=== PATIENT | female | born 1940 | race American Indian/Alaskan Native ===

== ENCOUNTER 2017-04-21 23:23 | Inpatient (IN) | payer MEDICARE, OTHER ==
[2017-04-21 23:23] VITALS: BMI 29.4
--- NOTE | 2017-04-21 23:39 | C.PDOC ---
History Of Present Illness pt presents with increased shortness of breath, yellow productive cough. No f/c/ n/v or chest pain. Speaking in complete sentences. Time Seen by Provider: 04/21/17 23:38 History Per: Patient History/Exam Limitations: no limitations Onset/Duration Of Symptoms: Days (6) Current Symptoms Are (Timing): Still Present Initiating Event: Upper Respiratory Illness Quality: Dull Exacerbating Factor(s): Exertion, Coughing Current Respiratory Medications: See Home Med List Severity: Moderate Pain Scale Rating Of: 4 Associated Symptoms: Productive Cough. denies: Fever, Chills Reports Recently: Treated By A Physician Recent travel outside of the [place]: No Additional History Per: Family Past Medical History Reviewed: Historical Data, Nursing Documentation, Vital Signs Vital Signs: Last Vital Signs Temp 97.6 F 04/21/17 23:43 Pulse 81 04/21/17 23:45 Resp 20 04/22/17 00:09 BP 144/85 04/21/17 23:45 Pulse Ox 100 04/22/17 00:12 - Medical History PMH: Arthritis, CHF, Depression, Diabetes, Gall Bladder Disease (gallstones), Hyperlipidemia, Pneumonia Denies: Anemia, Anxiety, Asthma, Bronchitis, Cardia Arrhythmia, COPD, Dementia - [facility] Procedures ANGIOPLASTY OF OTHER NON-CORONARY VESSEL(S) (08/20/14) ATHERECTOMY OF OTHER NON-CORONARY VESSEL(S) (08/20/14) CENTRAL VENOUS CATHETER PLACEMENT WITH GUIDANCE (08/20/14) CLOSURE SKIN & SUBCUTANEOUS NEC (05/15/14) CONTRAST AORTOGRAM (08/20/14) CONTRAST ARTERIOGRAM-LEG (08/20/14) CORONAR ARTERIOGR-2 CATH (01/26/14) DX ULTRASOUND-THORAX NEC (09/07/14) EXCIS DEBRIDE OF WOUND, INFECT, OR BURN (04/28/14) EXCISION OF DUODENUM, ENDO, DIAGN (09/22/15) EXCISION OF SIGMOID COLON, ENDO (09/22/15) EXCISION OF STOMACH, ENDO, DIAGN (09/22/15) INSEJ OF DRUG-ELUTING STENT(S) OF OTH PERIPHERAL VESSEL(S) (08/20/14) INSERTION OF ONE VASCULAR STENT (08/20/14) INTRAVASCULAR IMAGING OF PERIPHERAL VESSELS (08/20/14) LEFT HEART CARDIAC CATH (01/26/14) LT HEART ANGIOCARDIOGRAM (01/26/14) NEBULIZER THERAPY (11/05/14) NON-INVASIVE MECHANICAL VENTILATION (11/05/14) NONEXCIS DEBRID OF WOUND, INFECT, OR BURN (08/20/14) OTHER LOCAL DESTRUC SKIN (05/15/14) OTHER SKIN & SUBQ I D (04/28/14) PROCEDURE ON SINGLE VESSEL (08/20/14) PULSATION BALLOON IMPLAN (01/26/14) THORACENTESIS (10/20/14) TOE AMPUTATION (04/28/14) VACCINATION NEC (08/20/14) Family History: States: No Known Family Hx - Social History Hx Tobacco Use: No Hx Alcohol Use: No Hx Substance Use: No - Immunization History Hx Tetanus Toxoid Vaccination: No Hx Influenza Vaccination: No Hx Pneumococcal Vaccination: No Review Of Systems Constitutional: Negative for: Fever, Chills Eyes: Negative for: Vision Change ENT: Negative for: Throat Pain Cardiovascular: Negative for: Chest Pain, Palpitations Respiratory: Positive for: Cough, Shortness of Breath. Negative for: Hemoptysis , SOB with Excertion, Wheezing Gastrointestinal: Negative for: Nausea, Vomiting Genitourinary: Negative for: Dysuria Musculoskeletal: Negative for: Back Pain Skin: Negative for: Rash, Lesions, Jaundice, Bruising Neurological: Negative for: Weakness Psych: Negative for: Anxiety Physical Exam - Physical Exam Appears: Non-toxic, No Acute Distress Skin: Warm, Dry Head: Normacephalic Oral Mucosa: Moist Neck: Trachea Midline, Supple, Other (mild jvd) Chest: Symmetrical Cardiovascular: Rhythm Regular Respiratory: No Rales, Rhonchi, No Wheezing Gastrointestinal/Abdominal: Soft, No Tenderness, No Distention Back: Normal Inspection Extremity: Normal ROM Extremity: Bilateral: Atraumatic, No Pedal Edema Neurological/Psych: Oriented x3, Normal Speech, Normal Cognition Gait: With Assistance ED Course And Treatment - Laboratory Results Result Diagrams: 04/22/17 00:07 04/22/17 00:51 ECG: Interpreted By Me, Viewed By Me ECG Rhythm: Sinus Rhythm (82), R BBB, Nonspecific Changes (old inf and ant infarct) O2 Sat by Pulse Oximetry: 100 Pulse Ox Interpretation: Normal - Radiology CXR: Interpreted by Me, Viewed By Me CXR Interpretation: Yes: Cardiomegaly, Other (chf, r pleural effusion). No: Fracture Disposition Discussed With Dr.: Wade Grider Comment: accepted the pt on his service and took over the care at 1:21 AM Doctor Will See Patient In The: Hospital Counseled Patient/Family Regarding: Studies Performed, Diagnosis - Disposition Disposition: HOSPITALIZED Disposition Time: 23:39 Condition: FAIR - POA Present On Arrival: Poor Glycemic Control - Clinical Impression Clinical Impression: Dyspnea, CHF (congestive heart failure), Renal insufficiency Decision To Admit - Pt Status Changed To: Hospital Disposition Of: Inpatient - Admit Certification Admit to Inpatient:: After my assessment, the patient will require hospitalization for at least two midnights. This is because of the severity of symptoms shown, intensity of services needed, and/or the medical risk in this patient being treated as an outpatient. - InPatient: Physician Admission Certification: I certify that this patient requires 2 or more midnights of care for the following reason:: After my assessment, the patient will require hospitalization for at least two midnights. This is because of the severity of symptoms shown, intensity of services needed, and/or the medical risk in this patient being treated as an outpatient. - . Bed Request Type: Telemetry Admitting Physician: Wade Grider Patient Diagnosis: Dyspnea, CHF (congestive heart failure), Renal insufficiency
[2017-04-22 00:11] LABS: BASO % 0.6 % (0.0-2.0); EOS # 0.1 K/uL (0.0-0.7); EOS % 1.5 % (0.0-4.0); HEMATOCRIT 33.3 % (34.0-47.0); LYMPH # 1.6 K/uL (1.0-4.3); LYMPH % 20.9 % (20.0-40.0); MEAN CELL VOLUME 75.5 fL (81.0-99.0); MEAN CORPUSCULAR HEMOGLOBIN 23.9 pg (27.0-31.0); MEAN CORPUSCULAR HGB CONC 31.7 g/dL (33.0-37.0); MEAN PLATELET VOLUME 10.2 fL (7.2-11.7); MONO # 0.7 K/uL (0.0-0.8); MONO % 9.6 % (0.0-10.0); RED CELL DISTRIBUTION WIDTH 13.8 % (11.5-14.5); WHITE BLOOD COUNT 7.8 K/uL (4.8-10.8)
[2017-04-22 00:14] LABS: VENOUS BLOOD GAS BASE EXCESS -1.8 mmol/L (0.0-2.0); VENOUS BLOOD GAS PCO2 48 mmHg (40-60); VENOUS BLOOD PH 7.32 (7.32-7.43)
[2017-04-22 00:21] LABS: INR 1.2
[2017-04-22 00:57] LABS: CHLORIDE 101 mmol/L (98-107); POTASSIUM 4.5 mmol/L (3.6-5.2); SODIUM 137 mmol/L (132-148)
[2017-04-22 00:59] LABS: BILIRUBIN,TOTAL 0.8 mg/dL (0.2-1.3); CARBON DIOXIDE 21 mmol/L (22-30); GFR AFRICAN-AMERICAN 33
[2017-04-22 01:00] LABS: ALB/GLOB RATIO 1.1 (1.0-2.1); ALKALINE PHOSPHATASE 89 U/L (38-126); ALT/SGPT 36 U/L (9-52); AST/SGOT 40 U/L (14-36); BLOOD UREA NITROGEN 60 mg/dL (7-17); CALCIUM 8.2 mg/dl (8.6-10.4); GLUCOSE,RANDOM 177 mg/dL (65-105); TOTAL PROTEIN 7.6 g/dL (6.3-8.3)
[2017-04-22] MEDS ORDERED: Magnesium Hydroxide Susp 30 ml UD PO PRN (06:51)
[2017-04-22 08:13] LABS: BASO # 0.1 K/uL (0.0-0.2); BASO % 0.9 % (0.0-2.0); EOS # 0.1 K/uL (0.0-0.7); EOS % 0.9 % (0.0-4.0); HEMATOCRIT 35.3 % (34.0-47.0); LYMPH # 1.5 K/uL (1.0-4.3); LYMPH % 21.3 % (20.0-40.0); MEAN CORPUSCULAR HEMOGLOBIN 23.8 pg (27.0-31.0); MEAN CORPUSCULAR HGB CONC 31.7 g/dL (33.0-37.0); MONO # 0.6 K/uL (0.0-0.8); MONO % 9.2 % (0.0-10.0)
[2017-04-22 08:22] LABS: POTASSIUM 4.4 mmol/L (3.6-5.2)
[2017-04-22 08:25] LABS: CALCIUM 8.6 mg/dl (8.6-10.4); TOTAL PROTEIN 7.8 g/dL (6.3-8.3)
[2017-04-22] MEDS: (Novolin R) Insulin Human Regular 100 units/ml vial SC SCH ×4 (08:28→22:59)
[2017-04-22] MEDS: Digoxin 125 mcg (0.125 mg) Tab PO SCH (10:43)
[2017-04-22] MEDS: metOLazone 5 MG TAB PO SCH (10:43)
[2017-04-22] MEDS: Multiple Vitamins Tab PO SCH (10:44)
[2017-04-22] MEDS: GlipiZIDE 10 mg SR Tab PO SCH (10:44)
--- NOTE | 2017-04-22 11:26 | HP ---
I saw her in her room at [facility], telemetry, 668. She comes into the Emergency Room in the m iddle of the night with shortness of breath, productive cough, chest pain. I got a call at 1:30 from the ER doctor that she is here, not feeling well. She is a 77-year-old -[place] female with shortness of breath and coughing with exertion. It would not go away. PAST MEDICAL HISTORY: Arthritis, CHF, depression, diabetes, gallbladder disease, hyperlipidemia, a p neumonia history in the past. No headache or dizziness. No changes in vision or hearing. No sore throat. A little chest discomfo rt. There is shortness of breath. There is cough. No abdominal pain. No nausea, vomiting, constip ation, diarrhea. No leg pain. No rashes. Not weak. No numbness or tingling. No anxiety or depres benito. PHYSICAL EXAMINATION: VITAL SIGNS: She has a 98.3 temp, 145/85 blood pressure, 18 respiratory rate and 100% O2 sat on room air. HEENT: Head is atraumatic, normocephalic. Extraocular muscles are intact. Throat is moist. NECK: Supple. HEART: Regular rate and rhythm. LUNGS: Decreased breath sounds. No rales, rhonchi or wheezing. She is comfortable at rest after La six 40 IV. ABDOMEN: Morbidly obese, nontender, positive bowel sounds, no guarding, no rebound, no CVA tendernes s. EXTREMITIES: Had bilateral +1/4 pitting. Now, there is no edema this morning after Lasix IV. NEUROLOGIC: She is alert and oriented x 3. Normal speech. She is comfortable sitting in bed at res t. LYMPHATIC: Thyroid midline. No palpable lymphadenopathy. SKIN: Intact. She had 7.8 white count, 10.6 hemoglobin, 32.3 hematocrit with 195 platelets. INR 1.2. She is suppo sed to be on Coumadin. PH 7.32. Sodium 137, potassium 4.5, BUN 60, creatinine 1.8, GFR is 27, sugar is 177. I will call in renal and also give her insulin coverage. Total bili is 0.8, calcium is 8.2 , AST is 40, ALT is 36, alk phos is 89. Troponin I is 0.0170, low. BNP was gibson high at 18,300. I w ill increase her Lasix to b.i.d. IV. Albumin is 3.9. Digoxin level is less than 0.04. She will have a consult with cardiology. Chest x-ray is pending. She will have an INR checked, put back on her medications, aspirin, warfarin, digoxin, glipizide, I will increase the Lasix, metolazone , magnesium and multivitamins. We will get physical therapy involved, get oxygen and renal for her r enal insufficiency. She is here for congestive heart failure, chest pain, renal insufficiency. Get physical therapy, she seems weak and we will keep a very close eye on her. Wade Grider DO cc: [id number] TT: 04/22/2017 11:25:43 en
[2017-04-22 11:41] LABS: INR 1.2
--- NOTE | 2017-04-22 15:43 | RAD ---
PROCEDURE: CHEST RADIOGRAPH, 1 VIEW HISTORY: SOB COMPARISON: None available. FINDINGS: LUNGS: Mild central pulmonary vascular congestive changes with more dense opacification in the lower lung petty right greater than left. Findings may represent alveolar-type infiltrates related pulmonary edema however pneumonia not excluded. Probable small right-sided effusion. PLEURA: No apparent pneumothorax CARDIOVASCULAR: Cardiomegaly OSSEOUS STRUCTURES: Mild degenerative changes both shoulder girdles. . VISUALIZED UPPER ABDOMEN: Normal. OTHER FINDINGS: None. IMPRESSION: Mild central pulmonary vascular congestive changes with more dense opacification in the lower lung petty right greater than left. Findings may represent alveolar-type infiltrates related pulmonary edema however pneumonia not excluded. Probable small right-sided effusion. This report was placed in PA review folder for followup. Case also discussed with emergency room TINA Landers at approximately 3:41 p.m. with written fat written down and read back verification.
--- NOTE | 2017-04-22 18:52 | CON ---
DATE: 04/22/2017 ATTENDING PHYSICIAN: Dr. Wade Grider. HISTORY OF PRESENT ILLNESS: The patient is a 77-year-old black female who is being seen for renal fa ilure. The patient has a long history of diabetes and hypertension who has been told over the last s everal years that her kidney function is not normal. She developed shortness of breath and cough pro ductive of dark sputum, came to the Emergency Room and was admitted. LABORATORY DATA: Her white count was 7800 earlier today, her hemoglobin 10.6, hematocrit 33.3, plate let count was 195,000. Sodium 137, potassium 4.5, chloride 101, CO2 of 21, BUN 60, creatinine 1.8. Glucose was 177, calcium 8.2, total bilirubin 0.8, AST of 40, ALT of 36, alkaline phosphatase of 89, BNP of 18,300. Total protein 7.6, albumin 3.9. Digoxin less than 0.4. Repeat BUN was 57 with a cre atinine of 1.9. Troponin was 0.0170. PAST MEDICAL HISTORY: Positive for congestive heart failure, depression, gallstones and pneumonia. She has had cataracts. She has had a cataract removed. Her eyesight is still poor. Does not rememb er being told of diabetic retinopathy. She believes she might have had a heart attack in the past. She denies stroke. She has been admitted to [facility] in the past. ALLERGIES: She has no allergies. MEDICATIONS: Include Ecotrin, Lanoxin, Lasix, Glucotrol, insulin, Zaroxolyn multivitamin and Coumadi n. FAMILY HISTORY: Positive for diabetes and hypertension. SOCIAL HISTORY: Negative for alcohol or drug abuse. She does not take anti-inflammatory agents and she does not smoke. REVIEW OF SYSTEMS: She denied chills or fever. She denied chest pain when not coughing. There was no abdominal pain, nausea, vomiting or diarrhea and she had no urinary symptoms. PHYSICAL EXAMINATION: GENERAL: She was awake and alert, in no acute distress. VITAL SIGNS: Her blood pressure was 133/76. Her temperature was 98.4 with a pulse of 77. NECK: She had jugular venous distention at 30 degrees. LUNGS: Clear with prolonged inspiration and expiration and coarse sounds. HEART: Rhythm was regular. ABDOMEN: Soft and nontender. There was no CVA tenderness or presacral edema. EXTREMITIES: There was no leg edema and she moved all her extremities. IMPRESSION: 1. Congestive heart failure. 2. Cardiomyopathy. 3. Diabetes, probable diabetic nephropathy, chronic kidney disease III. 4. Hypertension. RECOMMENDATIONS: Would recommend a urine for protein and creatinine, hemoglobin A1c, a renal ultraso und and serial chemistries. Await further cardiology evaluation. Thank you for your kind referral. Will continue to follow with you. Sincerely, Fly Cano MD cc: [id number] TT: 04/22/2017 18:50:59 Confirmation # [id number] Dictation # [id number] dn
--- NOTE | 2017-04-22 19:23 | US ---
PROCEDURE: Renal ultrasound dated 04/22/2017. HISTORY: Renal failure. COMPARISON: None available. TECHNIQUE: Sonogram of the kidneys. FINDINGS: RIGHT KIDNEY: Right kidney measures approximately 9.9 x 5.3 x 4.5 cm. Slightly echogenic renal parenchyma suggesting medical renal disease. Relatively normal size and contour. . No stone, solid mass lesion or hydronephrosis visualized. LEFT KIDNEY: Left kidney measures approximately 10.9 x 5.2 x 4.7 cm. Slightly echogenic renal parenchyma suggesting underlying medical renal disease. . Relatively normal size and contour. No stone, solid mass lesion or hydronephrosis visualized. OTHER FINDINGS: The visualized urinary bladder demonstrates no at shadowing calculi so far as can be seen. IMPRESSION: Findings suggest underlying mild medical renal disease. No evidence of nephrolithiasis or hydronephrosis.
[2017-04-23 07:29] LABS: INR 1.2; MEAN CELL VOLUME 76.2 fL (81.0-99.0); MEAN CORPUSCULAR HEMOGLOBIN 23.9 pg (27.0-31.0); MEAN CORPUSCULAR HGB CONC 31.3 g/dL (33.0-37.0); MEAN PLATELET VOLUME 10.4 fL (7.2-11.7); RED CELL DISTRIBUTION WIDTH 14.2 % (11.5-14.5)
[2017-04-23] MEDS: (Novolin R) Insulin Human Regular 100 units/ml vial SC SCH ×4 (07:38→22:23)
[2017-04-23 08:07] LABS: BILIRUBIN,TOTAL 1.2 mg/dL (0.2-1.3)
[2017-04-23 08:08] LABS: CALCIUM 9.1 mg/dl (8.6-10.4); TOTAL PROTEIN 8.5 g/dL (6.3-8.3)
[2017-04-23 08:19] LABS: CREATININE, RANDOM URINE 29.5 mg/dL
[2017-04-23] MEDS: GlipiZIDE 10 mg SR Tab PO SCH (10:04)
[2017-04-23] MEDS: Digoxin 125 mcg (0.125 mg) Tab PO SCH (10:04)
[2017-04-23] MEDS: Multiple Vitamins Tab PO SCH (10:04)
[2017-04-23] MEDS: metOLazone 5 MG TAB PO SCH (10:05)
--- NOTE | 2017-04-23 10:10 | CP.PCM.CON ---
History of Present Illness - History of Present Illness History of Present Illness: The patient is a 77 year old female with DM, CAD (three coronary stents at one hospital visit in [facility] 3 years ago), with progressive shortness of breath. CXR shows mild congestion. No chest pressure.She is followed by a research asst in [place], whom she cannot name. A echo performed here in early 2015 revealed, moderately reduced LV EF wit akinesis of the apical septal, apical and inferior collins c/w OK in the LAD distribution. pt had mild MR and mild AI, but moderate pulmonary HTN.Pt has high BUN and cr, seen by Dr Cano. matteo not on scott inhibitor or arb at home. Pt is also on coumadin, and she is not sure if she has a history of afib in the past. Review of Systems - Review of Systems All systems: reviewed and no additional remarkable complaints except (as above.) Past Patient History - Infectious Disease Hx of Infectious Diseases: None - Tetanus Immunizations Tetanus Immunization: Unknown - Past Social History Smoking Status: Never Smoked - CARDIAC Hx Congestive Heart Failure: Yes - PULMONARY Hx Asthma: No Hx Bronchitis: No Hx Chronic Obstructive Pulmonary Disease (COPD): No Hx Pneumonia: Yes - NEUROLOGICAL Hx Dementia: No - HEENT Hx HEENT Problems: No Hx Blind: No Hx Cataracts: No Hx Deafness: No Hx Difficulty Chewing: No Hx Epistaxis: No Hx Glaucoma: No Hx Macular Degeneration: No - RENAL Hx Chronic Kidney Disease: No Hx Kidney Stones: No - ENDOCRINE/METABOLIC Hx Hyperthyroidism: No Hx Hypothyroidism: No - HEMATOLOGICAL/ONCOLOGICAL Hx Anemia: No - INTEGUMENTARY Hx Dermatological Problems: No - MUSCULOSKELETAL/RHEUMATOLOGICAL Hx Arthritis: Yes - GASTROINTESTINAL Hx Gall Bladder Disease: Yes (gallstones) - GENITOURINARY/GYNECOLOGICAL Hx Sexually Transmitted Disorders: No - PSYCHIATRIC Hx Anxiety: No Hx Depression: Yes Hx Substance Use: No - SURGICAL HISTORY Hx Appendectomy: No Hx Cholecystectomy: No Hx Coronary Stent: No - ANESTHESIA Hx Anesthesia: Yes Hx Anesthesia Reactions: No Hx Malignant Hyperthermia: No Has any member of the family had a problem w/ anesthesia?: No Meds Allergies/Adverse Reactions: Allergies Allergy/AdvReac Type Severity Reaction Status Date / Time No Known Allergies Allergy Verified 11/24/15 15:06 - Medications Medications: Current Medications Aspirin (Ecotrin) 81 mg PO DAILY [facility] Last Admin: 04/22/17 10:43 Dose: 81 mg Digoxin (Lanoxin) 0.125 mg PO QAM [facility] Last Admin: 04/22/17 10:43 Dose: 0.125 mg Furosemide (Lasix) 40 mg IVP DAILY [facility] Glipizide (Glucotrol Xl) 10 mg PO DAILY [facility] Last Admin: 04/22/17 10:44 Dose: 10 mg Insulin Human Regular (Novolin R) 0 unit SC ACHS [facility] PRN Reason: Protocol Last Admin: 04/23/17 07:38 Dose: Not Given Magnesium Hydroxide (Milk Of Magnesia) 30 ml PO DAILY PRN PRN Reason: Constipation Metolazone (Zaroxolyn) 5 mg PO DAILY [facility] Last Admin: 04/22/17 10:43 Dose: 5 mg Multivitamins (Hexavitamin) 1 tab PO DAILY [facility] Last Admin: 04/22/17 10:44 Dose: 1 tab Physical Exam - Constitutional Appears: Well - Head Exam Head Exam: ATRAUMATIC - Eye Exam Eye Exam: EOMI Pupil Exam: NORMAL ACCOMODATION - ENT Exam ENT Exam: Mucous Membranes Moist - Neck Exam Neck exam: Positive for: Normal Inspection - Respiratory Exam Respiratory Exam: Clear to Auscultation Bilateral - Cardiovascular Exam Cardiovascular Exam: REGULAR RHYTHM - GI/Abdominal Exam GI & Abdominal Exam: Normal Bowel Sounds - Exam External exam: Swelling (mild, chronic) Results - Vital Signs Recent Vital Signs: Last Vital Signs Temp 97.8 F 04/23/17 08:26 Pulse 73 04/23/17 08:50 Resp 20 04/23/17 08:26 BP 148/90 04/23/17 08:26 Pulse Ox 100 04/23/17 08:26 - Labs Result Diagrams: 04/23/17 07:15 04/23/17 07:15 Labs: Laboratory Results - last 24 hr 04/22/17 04/22/17 04/22/17 11:27 11:27 12:22 WBC RBC Hgb Hct MCV MCH MCHC RDW Plt Count MPV PT 13.8 H INR 1.2 Sodium Potassium Chloride Carbon Dioxide Anion Gap BUN Creatinine Est GFR ( Amer) Est GFR (Non-Af Amer) POC Glucose (mg/dL) 178 H Random Glucose Hemoglobin A1c Calcium Total Bilirubin AST ALT Alkaline Phosphatase Troponin I 0.1070 Total Protein Albumin Globulin Albumin/Globulin Ratio Ur Random Creatinine U Random Total Protein 04/22/17 04/22/17 04/22/17 17:30 17:35 22:23 WBC RBC Hgb Hct MCV MCH MCHC RDW Plt Count MPV PT INR Sodium Potassium Chloride Carbon Dioxide Anion Gap BUN Creatinine Est GFR ( Amer) Est GFR (Non-Af Amer) POC Glucose (mg/dL) 222 H 119 H Random Glucose Hemoglobin A1c 8.6 H Calcium Total Bilirubin AST ALT Alkaline Phosphatase Troponin I Total Protein Albumin Globulin Albumin/Globulin Ratio Ur Random Creatinine U Random Total Protein 04/23/17 04/23/17 04/23/17 06:49 07:15 07:15 WBC 9.0 RBC 5.12 Hgb 12.2 Hct 39.0 MCV 76.2 L MCH 23.9 L MCHC 31.3 L RDW 14.2 Plt Count 222 MPV 10.4 PT INR Sodium 138 Potassium 4.0 Chloride 99 Carbon Dioxide 24 Anion Gap 19 BUN 57 H Creatinine 1.8 H Est GFR ( Amer) 33 Est GFR (Non-Af Amer) 27 POC Glucose (mg/dL) 93 Random Glucose 89 Hemoglobin A1c Calcium 9.1 Total Bilirubin 1.2 AST 39 H ALT 32 Alkaline Phosphatase 108 Troponin I Total Protein 8.5 H Albumin 4.1 Globulin 4.3 H Albumin/Globulin Ratio 1.0 Ur Random Creatinine U Random Total Protein 04/23/17 04/23/17 07:15 07:42 WBC RBC Hgb Hct MCV MCH MCHC RDW Plt Count MPV PT 13.4 H INR 1.2 Sodium Potassium Chloride Carbon Dioxide Anion Gap BUN Creatinine Est GFR ( Amer) Est GFR (Non-Af Amer) POC Glucose (mg/dL) Random Glucose Hemoglobin A1c Calcium Total Bilirubin AST ALT Alkaline Phosphatase Troponin I Total Protein Albumin Globulin Albumin/Globulin Ratio Ur Random Creatinine 29.5 U Random Total Protein 36.0 H - EKG Data EKG Interpreted by: Myself (nsr, rbbb, possibl old IMI) Assessment & Plan - Assessment and Plan (Free Text) Assessment: 1. Pt has ischemic cardiomyopathy, and moderate pulmonary HTN. Echo is ordered to reassess systolic and diastolic function, PA pressures. 2. Pt should be on an arb, beta milagros. will consider aldactone later as Cr is followed. Pt appears to be pre-renal. Currently clinical status has improved since admission. 3. Eventual stress test to asses for ischemia.
--- NOTE | 2017-04-23 10:18 | RAD ---
HISTORY: chf COMPARISON: 04/22/2017 TECHNIQUE: Chest PA and lateral FINDINGS: LUNGS: No pulmonary infiltrate. PLEURA: Small right pleural effusion unchanged. No left pleural effusion. No pneumothorax. CARDIOVASCULAR: Normal heart size. No congestive change. OSSEOUS STRUCTURES: No significant abnormalities. VISUALIZED UPPER ABDOMEN: Normal. OTHER FINDINGS: None. IMPRESSION: Small right pleural effusion. No acute infiltrate.
--- NOTE | 2017-04-23 11:24 | CP.PCM.PN ---
Subjective - Date & Time of Evaluation Date of Evaluation: 04/23/17 Time of Evaluation: 11:21 - Subjective Subjective: Less SOB with IV lasix ARB started- will need to follow K, creatinine levels Renal US consistent with CKD Has CKD stage 3 No CP, n, v, d, f, chills Objective - Vital Signs/Intake and Output Vital Signs (last 24 hours): Temp Pulse Resp BP Pulse Ox 97.8 F 73 20 148/90 100 04/23/17 08:26 04/23/17 08:50 04/23/17 08:26 04/23/17 10:05 04/23/17 08:26 Intake and Output: 04/23/17 04/23/17 06:59 18:59 Intake Total 400 Output Total 400 Balance 0 - Medications Medications: Current Medications Aspirin (Ecotrin) 81 mg PO DAILY [facility] Last Admin: 04/23/17 10:04 Dose: 81 mg Carvedilol (Coreg) 6.25 mg PO BID [facility] Digoxin (Lanoxin) 0.125 mg PO QAM [facility] Last Admin: 04/23/17 10:04 Dose: 0.125 mg Enoxaparin Sodium (Lovenox) 40 mg SC DAILY [facility] Furosemide (Lasix) 40 mg IVP DAILY [facility] Last Admin: 04/23/17 10:05 Dose: 40 mg Glipizide (Glucotrol Xl) 10 mg PO DAILY [facility] Last Admin: 04/23/17 10:04 Dose: 10 mg Insulin Human Regular (Novolin R) 0 unit SC ACHS [facility] PRN Reason: Protocol Last Admin: 04/23/17 07:38 Dose: Not Given Losartan Potassium (Cozaar) 50 mg PO DAILY [facility] Magnesium Hydroxide (Milk Of Magnesia) 30 ml PO DAILY PRN PRN Reason: Constipation Multivitamins (Hexavitamin) 1 tab PO DAILY [facility] Last Admin: 04/23/17 10:04 Dose: 1 tab Warfarin Sodium (Coumadin) 5 mg PO 1800 [facility] Stop: 04/23/17 18:01 - Labs Labs: 04/23/17 07:15 04/23/17 07:15 PT 13.4 SECONDS (9.7-12.2) H 04/23/17 07:15 INR 1.2 04/23/17 07:15 APTT 29 SECONDS (21-34) 04/22/17 00:07 - Constitutional Appears: No Acute Distress, Chronically Ill - Head Exam Head Exam: ATRAUMATIC, NORMAL INSPECTION - Eye Exam Eye Exam: EOMI, Normal appearance - Neck Exam Neck Exam: Normal Inspection. absent: Tenderness - Respiratory Exam Respiratory Exam: Clear to Ausculation Bilateral, NORMAL BREATHING PATTERN - Cardiovascular Exam Cardiovascular Exam: REGULAR RHYTHM, +S1 - GI/Abdominal Exam GI & Abdominal Exam: Soft. absent: Tenderness - Extremities Exam Extremities Exam: Normal Inspection. absent: Pedal Edema, Tenderness - Neurological Exam Neurological Exam: Alert, CN II-XII Intact Assessment and Plan (1) CKD stage 3 due to type 2 diabetes mellitus Status: Acute (2) CHF (congestive heart failure) Status: Acute (3) Diabetes mellitus Status: Acute - Assessment and Plan (Free Text) Plan: follow BP closely- adjust meds if necessary ARB added - follow up K, creatinine IV lasix for CHF check protein excretion rate
[2017-04-23] MEDS: Enoxaparin 40 mg Syringe SC SCH (12:33)
[2017-04-23 13:37] LABS: THYROID STIMULATING HORMONE 2.17 mIU/L (0.46-4.68)
[2017-04-23 21:57] LABS: RBC URINE 6 /hpf (0-3); URINE BACTERIA RARE (<OCC); URINE BILIRUBIN NEGATIVE (NEGATIVE); URINE COLOR Yellow (YELLOW); URINE GLUCOSE (UA) NORMAL (Normal); URINE KETONE NEGATIVE (NEGATIVE); URINE LEUKOCYTE ESTERASE NEG Leu/uL (Negative); URINE PROTEIN NEGATIVE (NEGATIVE); URINE UROBILINOGEN NORMAL mg/dL (0.2-1.0); WBC URINE < 1 /hpf (0-5)
[2017-04-23 21:58] LABS: URINE BLOOD TRACE (NEGATIVE)
--- NOTE | 2017-04-23 22:24 | CARD ---
APPROVED REPORT EXAM: Two-dimensional and M-mode echocardiogram with Doppler and color Doppler. Other Information Quality : GoodRhythm : NSR INDICATION Dyspnea Fatigue Congestive Heart Failure COPD M-Mode DIMENSIONS RVDd2.38 (2.1-3.2cm)Left Atrium (MM)4.22 (2.5-4.0cm) IVSd1.68 (0.7-1.1cm)Aortic Root3.16 (2.2-3.7cm) LVDd5.78 (4.0-5.6cm)Aortic Cusp Exc.1.60 (1.5-2.0cm) PWd1.56 (0.7-1.1cm)FS (%) 22 % LVDs4.53 (2.0-3.8cm)LVEF (%)43 (>50%) Aortic Valve AoV Peak Qcbtzewv930.1cm/Keven Peak GR.23mmHgAI P 1/2 Hiyp528ni Mitral Valve MV E Yzdmisqe911.9cm/sMV A Wxljdtpy76.7cm/sE/A ratio1.2 TDI E/Lateral E'0.0E/Medial E'0.0 Tricuspid Valve TR Peak Lynctdmq571gk/sTR Peak Gr.92xcIjKWCA59qtBn LEFT VENTRICLE The Left Ventricle is borderline dilated. There is borderline concentric left ventricular hypertrophy. Left ventricle systolic function is mildly to moderately impaired. The Ejection Fraction is 45-50%. There is akinesis in the apex wall. Transmitral Doppler flow pattern is Grade II-pseudonormal filling dynamics. There is no ventricular septal defect visualized. RIGHT VENTRICLE The right ventricle is mildly dilated. There is normal right ventricular wall thickness. The right ventricular systolic function is normal. ATRIA The left atrium is mildly dilated. The right atrium is mildly dilated. AORTIC VALVE The aortic valve is mildly sclerotic. The aortic valve is tri-cuspid. There is mild to moderate aortic regurgitation. There is no aortic valvular stenosis. 22 mmHG gradient with AI MITRAL VALVE Mitral annular calcification is borderline. There is no evidence of mitral valve prolapse. Mitral regurgitation is mild to moderate. TRICUSPID VALVE The tricuspid valve is normal in structure. There is mild to moderate tricuspid regurgitation. Right ventricular systolic pressure is estimated at 40-50 mmHg. There is moderate pulmonary hypertension. PULMONIC VALVE The pulmonic valve is not well visualized. There is trace pulmonic valvular regurgitation. GREAT VESSELS The IVC is normal in size and collapses >50% with inspiration. PERICARDIAL EFFUSION There is a trace circumferential pericardial effusion. <Conclusion> There is borderline concentric left ventricular hypertrophy. Left ventricle systolic function is mildly to moderately impaired. The Ejection Fraction is 45-50%. There is akinesis in the apex wall. Transmitral Doppler flow pattern is Grade II-pseudonormal filling dynamics. There is mild to moderate aortic regurgitation. Mitral regurgitation is mild to moderate. There is moderate pulmonary hypertension.
[2017-04-24 07:36] LABS: INR 1.2
[2017-04-24] MEDS: (Novolin R) Insulin Human Regular 100 units/ml vial SC SCH ×3 (07:37→17:04)
[2017-04-24 08:05] LABS: POTASSIUM 4.4 mmol/L (3.6-5.2)
[2017-04-24 08:08] LABS: CALCIUM 8.3 mg/dl (8.6-10.4); PHOSPHOROUS 4.3 mg/dL (2.5-4.5)
--- NOTE | 2017-04-24 08:20 | DS ---
I see her sitting up in bed this morning. She is comfortable. No shortness of breath, no chest pain . She is asking to go home. She also asked for a glucometer because the one she has at home is not working well. I will write for a glucometer, strips and lancets. She is also eating well, walking w ell, breathing better overall and no chest pain. PHYSICAL EXAMINATION: VITAL SIGNS: She has a 97.5 temp, 62 pulse, 119/78 blood pressure, 20 respiratory rate, 100% O2 sat on room air. HEENT: Head is atraumatic, normocephalic. HEART: Regular rate. LUNGS: Decreased breath sounds, but clear. ABDOMEN: Soft, obese. EXTREMITIES: No edema. MEDICATIONS: She is currently on Coreg, Cozaar, Ecotrin, Glucotrol, multivitamin, Lanoxin, Lasix, an d insulin coverage if she needs it. She was taking Coumadin. It was stopped by the cattle knocker. I am not sure if she will have it when she goes home. It has been on hold for now. LABORATORY: She has got a 138 sodium, potassium is 4, BUN is 57, creatinine 1.8. GFR is 27. Sugar is 89, calcium is 9.1, total bili is 1.2, AST is 39, ALT is 32, alk phos 108, total protein is 8.5, g lobulin 4.3, triglycerides are 97, cholesterol is 155, LDL 77, HDL 38. TSH is 2.17. White count is 9, hemoglobin 12.2, hematocrit 39, platelets of 222. We are waiting for 24-hour urine to be complete d at noon. I am hoping to discharge her later on this afternoon around 2:00. We will see if cardio wants to put her back on her Coumadin and any adjustment of her medications. I wrote the prescriptions out, a ne w glucometer. Hopefully, she will do very well. I will see her in the office in a week. She was he re for a few issues, congestive heart failure, dilated cardiomyopathy, pulmonary hypertension, renal insufficiency on chronic kidney disease stage III, diabetes, hypertension. Wade Grider DO cc: [phone] TT: 04/24/2017 08:19:13 tn
[2017-04-24] MEDS: Digoxin 125 mcg (0.125 mg) Tab PO SCH (10:05)
[2017-04-24] MEDS: GlipiZIDE 10 mg SR Tab PO SCH (10:05)
[2017-04-24] MEDS: Enoxaparin 40 mg Syringe SC SCH (10:06)
[2017-04-24 10:07] VITALS: PULSE 72
--- NOTE | 2017-04-24 10:54 | CP.PCM.PN ---
Subjective - Date & Time of Evaluation Date of Evaluation: 04/24/17 Time of Evaluation: 10:53 - Subjective Subjective: seen and examined on iv lasix leg swelling and breathing much improved Objective - Vital Signs/Intake and Output Vital Signs (last 24 hours): Temp Pulse Resp BP Pulse Ox 97.5 F L 67 20 116/70 100 04/24/17 00:38 04/24/17 09:04 04/24/17 00:38 04/24/17 10:05 04/24/17 00:38 Intake and Output: 04/24/17 04/24/17 06:59 18:59 Intake Total 570 Output Total 250 Balance 320 - Medications Medications: Current Medications Aspirin (Ecotrin) 81 mg PO DAILY [facility] Last Admin: 04/24/17 10:05 Dose: 81 mg Carvedilol (Coreg) 6.25 mg PO BID [facility] Last Admin: 04/24/17 10:05 Dose: 6.25 mg Digoxin (Lanoxin) 0.125 mg PO QAM [facility] Last Admin: 04/24/17 10:05 Dose: 0.125 mg Enoxaparin Sodium (Lovenox) 40 mg SC DAILY [facility] Last Admin: 04/24/17 10:06 Dose: 40 mg Furosemide (Lasix) 40 mg IVP DAILY [facility] Last Admin: 04/24/17 10:05 Dose: 40 mg Glipizide (Glucotrol Xl) 10 mg PO DAILY [facility] Last Admin: 04/24/17 10:05 Dose: 10 mg Insulin Human Regular (Novolin R) 0 unit SC ACHS [facility] PRN Reason: Protocol Last Admin: 04/24/17 07:37 Dose: Not Given Losartan Potassium (Cozaar) 50 mg PO DAILY [facility] Last Admin: 04/24/17 10:07 Dose: 50 mg Magnesium Hydroxide (Milk Of Magnesia) 30 ml PO DAILY PRN PRN Reason: Constipation Multivitamins (Hexavitamin) 1 tab PO DAILY [facility] Last Admin: 04/23/17 10:04 Dose: 1 tab - Labs Labs: 04/23/17 07:15 04/24/17 07:19 PT 13.2 SECONDS (9.7-12.2) H 04/24/17 07:19 INR 1.2 04/24/17 07:19 APTT 29 SECONDS (21-34) 04/22/17 00:07 - Constitutional Appears: Non-toxic, No Acute Distress, Other (obese) - Head Exam Head Exam: NORMAL INSPECTION - Eye Exam Eye Exam: Normal appearance Pupil Exam: NORMAL ACCOMODATION - ENT Exam ENT Exam: Mucous Membranes Moist, Normal Exam - Neck Exam Neck Exam: Normal Inspection - Respiratory Exam Respiratory Exam: Decreased Breath Sounds, NORMAL BREATHING PATTERN - Cardiovascular Exam Cardiovascular Exam: REGULAR RHYTHM, RRR - GI/Abdominal Exam GI & Abdominal Exam: Distended, Soft, Hypoactive Bowel Sounds - Extremities Exam Extremities Exam: Pedal Edema (1+) Assessment and Plan (1) CHF (congestive heart failure) Status: Acute (2) CKD stage 3 due to type 2 diabetes mellitus Status: Acute (3) Renal insufficiency Status: Acute (4) Coronary artery disease Status: Acute - Assessment and Plan (Free Text) Assessment: stable renal function. monitor chems closely on ARB diuretics per cardiology fluid restriction advised
--- NOTE | 2017-04-24 13:50 | CP.PCM.PN ---
Subjective - Date & Time of Evaluation Date of Evaluation: 04/24/17 Time of Evaluation: 13:46 - Subjective Subjective: Pt feels better. Echo confirms more severe LV dysfunction. Objective - Vital Signs/Intake and Output Vital Signs (last 24 hours): Temp Pulse Resp BP Pulse Ox 97.5 F L 67 20 116/70 100 04/24/17 00:38 04/24/17 09:04 04/24/17 00:38 04/24/17 10:05 04/24/17 00:38 Intake and Output: 04/24/17 04/24/17 06:59 18:59 Intake Total 570 Output Total 250 Balance 320 - Medications Medications: Current Medications Aspirin (Ecotrin) 81 mg PO DAILY [facility] Last Admin: 04/24/17 10:05 Dose: 81 mg Carvedilol (Coreg) 12.5 mg PO BID [facility] Enoxaparin Sodium (Lovenox) 40 mg SC DAILY [facility] Last Admin: 04/24/17 10:06 Dose: 40 mg Furosemide (Lasix) 40 mg IVP DAILY [facility] Last Admin: 04/24/17 10:05 Dose: 40 mg Glipizide (Glucotrol Xl) 10 mg PO DAILY [facility] Last Admin: 04/24/17 10:05 Dose: 10 mg Insulin Human Regular (Novolin R) 0 unit SC ACHS [facility] PRN Reason: Protocol Last Admin: 04/24/17 07:37 Dose: Not Given Losartan Potassium (Cozaar) 50 mg PO DAILY [facility] Last Admin: 04/24/17 10:07 Dose: 50 mg Magnesium Hydroxide (Milk Of Magnesia) 30 ml PO DAILY PRN PRN Reason: Constipation Multivitamins (Hexavitamin) 1 tab PO DAILY [facility] Last Admin: 04/23/17 10:04 Dose: 1 tab Warfarin Sodium (Coumadin) 7.5 mg PO 1800 [facility] Stop: 04/24/17 18:01 - Labs Labs: 04/23/17 07:15 04/24/17 07:19 PT 13.2 SECONDS (9.7-12.2) H 04/24/17 07:19 INR 1.2 04/24/17 07:19 APTT 29 SECONDS (21-34) 04/22/17 00:07 - Constitutional Appears: Well - Head Exam Head Exam: NORMAL INSPECTION - Eye Exam Eye Exam: EOMI - ENT Exam ENT Exam: Mucous Membranes Moist - Neck Exam Neck Exam: Full ROM - Respiratory Exam Respiratory Exam: Clear to Ausculation Bilateral - GI/Abdominal Exam GI & Abdominal Exam: Soft, Normal Bowel Sounds - Extremities Exam Extremities Exam: Full ROM, Normal Inspection - Back Exam Back Exam: NORMAL INSPECTION - Neurological Exam Neurological Exam: Awake, Normal Gait, Oriented x3 - Psychiatric Exam Psychiatric exam: Normal Affect - Skin Skin Exam: Normal Color Assessment and Plan - Assessment and Plan (Free Text) Assessment: 1. Ischemic cardiomyopathy: pt is now on arb and beta milagros. If cr is stable as outpt, will consider aldactone, entresto. CHF is clinically better. 2. Pt has refused ICD in the past. Not interested now. 3. TNI normal. If n recent stress test, will perform as outpatient. 4. Unclear as to why pt is on coumadin. INR low today. Pt was advised to see me in less than a week for INR check. Will request old records.
[2017-04-24] MEDS: Multiple Vitamins Tab PO SCH (14:28)
[2017-04-24 16:03] VITALS: PULSE 66; RESP 18; TEMP 97.4; O2SAT 100
[2017-04-24 17:16] VITALS: BP 134/83
--- NOTE | 2017-04-25 08:12 | PCM.HF ---
Heart Failure Core Measure - Heart Failure Ejection Fraction: 40 % or Greater FINESSE Inhibitor Prescribed: No Contraindication/Reason for not providing: on ARB Beta-Stephie Prescribed: Carvedilol Angiotensin II Receptor Stephie Prescribed: Yes AnticoagulationTherapy for Atrial Fibrillation/Atrialflutter: Yes Aldosterone Antagonist Prescribed: No Contraindication/Reason for not providing: ef >45/ bun/cr incr , will hold now as per Chip Unloader Hydralazine Nitrate Prescribed: No Contraindication/Reason for not providing: ef>45 Implantable Cardioverter Defibrillator Therapy: No Contraindication/Reason for not providing: pt refuse Cardiac Resynchronization Therapy Prescribed: No Contraindication/Reason for not providing: ef>45 - Follow up Will be discharged to: Home Follow Up Date (must be within 7 days from discharge): 04/30/17 Follow Up Time: 09:00
--- NOTE | 2017-04-25 21:07 | PQF CHF ---
This form is a permanent part of the medical record Clarification of your documentation is requested to better reflect the severity of illness and intensity of treatment of your patient. Indicators present X[] Diagnosis of CHF and/or history of CHF [X] BNP > 200 [X] Imaging Finding of Pulmonary Edema /Pleural Effusions [] Fluid/Volume Overload [] Pitting edema [] Ejection Fraction < 40% (Indicative of Systolic Heart Failure) [X] Ejection Fraction > 40% (Indicative of Diastolic Heart Failure) [] Dyspnea / Orthopenea / Paroxysmal Nocturnal Dyspnea [X] Other:CHF,HTN, CKD 3, DM, ISCHEMIC CARDIOMYOPATHY,CAD Location in the medical record that reflects the above clinical findings: [P. NOTES, CONSULTS & D/C SUMMARY] Treatment Provided: [LASIX IV] PHYSICIAN'S RESPONSE Based on your medical judgment of the clinical indicators outlined above, are you treating this patient for a known or suspected: [x] Acute CHF [x] Systolic [] Diastolic [] Combined as per cardilogist [] Chronic CHF [] Systolic [] Diastolic [] Combined [] Acute on Chronic CHF []Systolic [] Diastolic [] Combined [] CHF due hypertension [] Acute systolic []Chronic systolic [] Acute/ chronic systolic [] Other, please indicate: [] [] If Unable to Determine, please check the box, sign and date. Present On Admission (POA) Indicator: [] Present at the time of admission [] Not present at the time of admission [] Clinically Undetermined In responding to this query, please exercise your independent professional judgment. The fact that a question is asked does not imply that any particular answer is desired or expected. Thank you for your clarification on this documentation. If you have any questions please call:[ ] * Thank you, [ ] metal milling machine operator GIANCARLO
== END 2017-04-24 18:23 | disposition home or self-care (01) | DRG 291 ==
LOC: C.ER 23:23 → C.9E 04-22 01:22 → C.6T 04-22 01:39
PROVIDERS: ADMIT Family Medicine; ATTEND Family Medicine
DX: I13.0 Hypertensive heart and chronic kidney disease with heart failure and stage 1 through stage 4 chronic kidney disease, or unspecified chronic kidney disease (principal); I50.21 Acute systolic (congestive) heart failure; E11.21 Type 2 diabetes mellitus with diabetic nephropathy; I27.2 Other secondary pulmonary hypertension; E11.22 Type 2 diabetes mellitus with diabetic chronic kidney disease; I25.10 Atherosclerotic heart disease of native coronary artery without angina pectoris; I25.5 Ischemic cardiomyopathy; N18.3 Chronic kidney disease, stage 3 (moderate); E78.5 Hyperlipidemia, unspecified; Z82.49 Family history of ischemic heart disease and other diseases of the circulatory system; Z87.01 Personal history of pneumonia (recurrent); I25.2 Old myocardial infarction; Z95.5 Presence of coronary angioplasty implant and graft; Z79.01 Long term (current) use of anticoagulants; Z98.49 Cataract extraction status, unspecified eye; M19.90 Unspecified osteoarthritis, unspecified site; Z79.4 Long term (current) use of insulin

== ENCOUNTER 2017-09-05 21:51 | Inpatient (IN) | payer OTHER ==
[2017-09-05 21:52] VITALS: PULSE 72; BMI 29.4
[2017-09-05 23:38] LABS: BASO % 0.6 % (0.0-2.0); EOS # 0.1 K/uL (0.0-0.7); EOS % 1.1 % (0.0-4.0); HEMATOCRIT 33.3 % (34.0-47.0); LYMPH # 1.5 K/uL (1.0-4.3); LYMPH % 19.7 % (20.0-40.0); MEAN CELL VOLUME 75.4 fL (81.0-99.0); MEAN CORPUSCULAR HEMOGLOBIN 24.6 pg (27.0-31.0); MEAN CORPUSCULAR HGB CONC 32.6 g/dL (33.0-37.0); MEAN PLATELET VOLUME 9.5 fL (7.2-11.7); MONO # 0.8 K/uL (0.0-0.8); MONO % 11.2 % (0.0-10.0); WHITE BLOOD COUNT 7.6 K/uL (4.8-10.8)
--- NOTE | 2017-09-05 23:38 | C.PDOC ---
History Of Present Illness 77 year old female, whose PMHx includes Diabetes, presents to the ED for evaluation of swelling noted to a callus on the plantar surface of her right foot since today. Patient notes the callus has been present on her foot for around 1 month, but she states the swelling began today. Patient reports she experienced similar symptoms to her right 3rd toe, which resulted in an amputation of the toe. Patient denies fever, chills, or redness around the affected area. Time Seen by Provider: 09/05/17 22:54 Chief Complaint (Nursing): Lower Extremity Problem/Injury History Per: Patient History/Exam Limitations: no limitations Onset/Duration Of Symptoms: Hrs Current Symptoms Are (Timing): Still Present Additional History Per: Patient - Ankle/Foot Description Of Injury: denies: Fell, Struck With Object, Struck Against Object Past Medical History Reviewed: Historical Data, Nursing Documentation, Vital Signs Vital Signs: Last Vital Signs Temp 97.9 F 09/05/17 22:21 Pulse 84 09/05/17 22:21 Resp 20 09/05/17 22:21 BP 114/70 09/05/17 22:21 Pulse Ox 100 09/06/17 00:13 - Medical History PMH: Arthritis, CHF, Depression, Diabetes, Gall Bladder Disease (gallstones), Hyperlipidemia, Pneumonia Denies: Alzheimer's Disease, Anemia, Anxiety, Asthma, Bipolar Disorder, Bronchitis, Cardia Arrhythmia, COPD, Crohn's Disease, Dementia, Diverticulitis, Emphysema, Fibromyalgia, Fractures, Gastrointestinal Ulcer, HIV, HTN, Hypercholesterolemia, Hyperthyroidism, Hypothyroidism, Kidney Stones, Migraine, Mitral Valve Prolapse, Osteoporosis, Pancreatitis, Paranoia, Parkinson's Disease , Peripheral Edema, Post Traumatic Stress Disorder, Chronic Kidney Disease, Schizophrenia, Seizures, Sickle Cell Disease, Sexually Transmitted Disease, Sleep Apnea, TIA - [facility] Procedures ANGIOPLASTY OF OTHER NON-CORONARY VESSEL(S) (08/20/14) ATHERECTOMY OF OTHER NON-CORONARY VESSEL(S) (08/20/14) CENTRAL VENOUS CATHETER PLACEMENT WITH GUIDANCE (08/20/14) CLOSURE SKIN & SUBCUTANEOUS NEC (05/15/14) CONTRAST AORTOGRAM (08/20/14) CONTRAST ARTERIOGRAM-LEG (08/20/14) CORONAR ARTERIOGR-2 CATH (01/26/14) DX ULTRASOUND-THORAX NEC (09/07/14) EXCIS DEBRIDE OF WOUND, INFECT, OR BURN (04/28/14) EXCISION OF DUODENUM, ENDO, DIAGN (09/22/15) EXCISION OF SIGMOID COLON, ENDO (09/22/15) EXCISION OF STOMACH, ENDO, DIAGN (09/22/15) INSEJ OF DRUG-ELUTING STENT(S) OF OTH PERIPHERAL VESSEL(S) (08/20/14) INSERTION OF ONE VASCULAR STENT (08/20/14) INTRAVASCULAR IMAGING OF PERIPHERAL VESSELS (08/20/14) LEFT HEART CARDIAC CATH (01/26/14) LT HEART ANGIOCARDIOGRAM (01/26/14) NEBULIZER THERAPY (11/05/14) NON-INVASIVE MECHANICAL VENTILATION (11/05/14) NONEXCIS DEBRID OF WOUND, INFECT, OR BURN (08/20/14) OTHER LOCAL DESTRUC SKIN (05/15/14) OTHER SKIN & SUBQ I D (04/28/14) PROCEDURE ON SINGLE VESSEL (08/20/14) PULSATION BALLOON IMPLAN (01/26/14) THORACENTESIS (10/20/14) TOE AMPUTATION (04/28/14) VACCINATION NEC (08/20/14) Family History: States: Unknown Family Hx - Social History Hx Tobacco Use: No Hx Alcohol Use: No Hx Substance Use: No - Immunization History Hx Tetanus Toxoid Vaccination: No Hx Influenza Vaccination: No Hx Pneumococcal Vaccination: No Review Of Systems Constitutional: Negative for: Fever, Chills Skin: Positive for: Other (swelling noted under callus on right foot ) Physical Exam - Physical Exam Appears: Non-toxic, No Acute Distress Skin: Normal Color, Warm, Dry, Other (thick callus over 1st metatarsal head ( appears older than 1 month) with fluctuant, fluid-filled abscess noted underneath. dusky appearance to right second toe with ulceration underneath. no evidence of gangrene or cellulitis ) Eye(s): bilateral: Normal Inspection Oral Mucosa: Moist Neck: Supple Chest: Symmetrical, No Deformity, No Tenderness Cardiovascular: Rhythm Regular, No Murmur Respiratory: Normal Breath Sounds Extremity: Normal ROM, No Tenderness, No Calf Tenderness, Capillary Refill ( less than 2 seconds ), No Deformity, Other (warmth to right foot ) Pulses: Right Dorsalis Pedis: Normal Neurological/Psych: Oriented x3, Normal Speech, Normal Cognition Gait: Steady ED Course And Treatment - Laboratory Results Result Diagrams: 09/05/17 23:35 09/05/17 23:35 Lab Interpretation: Abnormal (Mild anemia, Elevated BUN 89 with Cr 2.4. Glucose 218.) O2 Sat by Pulse Oximetry: 100 (on RA) Pulse Ox Interpretation: Normal - Other Rad Right foot X-Ray: Interpreted by Me Interpretation: No evidence of osteo. Amputation of 3rd toe and metatarsal head. Progress Note: labs and right foot XR ordered and reviewed. Reevaluation Time: 00:12 Reassessment Condition: Unchanged - Physician Consult Information Time Consulting Physician Contacted: 00:12 Physician Contacted: Wade Grider Outcome Of Conversation: He requests patient be admitted to the hospitalist service for treatment of diabetic ulcer. Cultures taken and IV antibiotics ordered. Disposition - Disposition Disposition: HOSPITALIZED Disposition Time: 01:01 Condition: STABLE - Clinical Impression Clinical Impression: Renal insufficiency, Diabetic ulcer of foot associated with diabetes mellitus due to underlying condition, limited to breakdown of skin - Scribe Statement The provider has reviewed the documentation as recorded by the Scribe (Ashlyn Smith) Provider Attestation: All medical record entries made by the Scribe were at my direction and personally dictated by me. I have reviewed the chart and agree that the record accurately reflects my personal performance of the history, physical exam, medical decision making, and the department course for this patient. I have also personally directed, reviewed, and agree with the discharge instructions and disposition.
[2017-09-05 23:47] LABS: POTASSIUM 4.5 mmol/L (3.6-5.2)
[2017-09-05 23:49] LABS: ALB/GLOB RATIO 1.1 (1.0-2.1); BILIRUBIN,TOTAL 0.6 mg/dL (0.2-1.3); TOTAL PROTEIN 8.3 g/dL (6.3-8.3)
[2017-09-05 23:50] LABS: CALCIUM 9.4 mg/dl (8.6-10.4)
[2017-09-06] MEDS ORDERED: Piperacill/Tazo 2.25gm in Dex 2.25 GM/50 ML BAG IVPB STA (01:03)
[2017-09-06] MEDS ORDERED: Vancomycin 1 GM 1 GM/250 ML BAG IVPB ONE (01:37)
[2017-09-06] MEDS ORDERED: Vancomycin 1 GM 1 GM/250 ML BAG IV ONE (02:00)
[2017-09-06] MEDS ORDERED: Piperacillin/Tazobact 2.25 GM in Sodium Chloride 100 ML IVPB SCH (03:30)
--- NOTE | 2017-09-06 03:38 | CP.PCM.HP ---
<KelinPrincess godoyAmish - Last Filed: 09/06/17 04:15> History of Present Illness - History of Present Illness History of Present Illness: Patient is a 77 years old female with a past medical history of DM, diabetic neuropathy, HTN, CKD, CHF, who presents to the ED with complaints of an ulcer on her right foot. Patient reports she first noticed the "bubble" today. She denies having pain, but states she has severe neuropathy, numbness, tingling, and decreased sensation. Patient states she had to have her 3rd toe amputated three years ago after stepping on a tac; she report she had the tac in her toe for 4 days without realizing due to her neuropathy. Patient states she has a callus on her right foot for the past month, but has no complaints and no pain. Patient currently denies having chest pain, palpitations, abdominal pain, nausea , vomiting, fevers, and headaches. PMD: Dr. Grider PMHx: DM, diabetic neuropathy, HTN, CKD, CHF SurgHx: right 3rd toe amputation, cardiac stent 2013 FamHx: Mother- [place], Colon Cancer SocHx: denies tobacco, alcohol, and drug use; lives with daughter (Mariam) Allergies: NKDA Medications: Warfarin, Lasix, Multivitamins, Metolazone, Carvedilol, [id number], Losartan, Glucophage, Insulin Present on Admission - Present on Admission Any Indicators Present on Admission: Yes History of Uncontrolled Diabetes: Yes Review of Systems - Constitutional Constitutional: Chills, Weakness (3 days). absent: Fever, Headache - EENT Eyes: absent: Change in Vision Ears: absent: Dizziness Nose/Mouth/Throat: absent: Sore Throat - Cardiovascular Cardiovascular: absent: Chest Pain, Dyspnea, Palpitations - Respiratory Respiratory: absent: Cough, Dyspnea - Gastrointestinal Gastrointestinal: absent: Abdominal Pain, Constipation, Diarrhea, Nausea, Vomiting - Genitourinary Genitourinary: absent: Dysuria, Hematuria - Musculoskeletal Musculoskeletal: Numbness (diabetic neuropathy), Stiffness (right foot), Tingling (diabetic neuropathy). absent: Abnormal Gait (uses a walker) - Integumentary Integumentary: Sores (right medial metatarsophalangeal region) - Neurological Neurological: Numbness, Tingling. absent: Dizziness, Frequent Falls, Headaches - Endocrine Endocrine: absent: Palpitations - Hematologic/Lymphatic Hematologic: absent: Easy Bleeding, Easy Bruising Past Patient History - Infectious Disease Hx of Infectious Diseases: None - Tetanus Immunizations Tetanus Immunization: Unknown - Past Social History Smoking Status: Never Smoked - CARDIAC Hx Cardia Arrhythmia: No Hx Congestive Heart Failure: Yes Hx Hypercholesterolemia: No Hx Hypertension: No Hx Mitral Valve Prolapse: No Hx Peripheral Edema: No - PULMONARY Hx Asthma: No Hx Bronchitis: No Hx Chronic Obstructive Pulmonary Disease (COPD): No Hx Emphysema: No Hx Pneumonia: Yes Hx Sleep Apnea: No - NEUROLOGICAL Hx Alzheimer's Disease: No Hx Dementia: No Hx Migraine: No Hx Parkinson's Disease: No Hx Seizures: No Hx Transient Ischemic Attacks (TIA): No - HEENT Hx HEENT Problems: No Hx Blind: No Hx Cataracts: No Hx Deafness: No Hx Difficulty Chewing: No Hx Epistaxis: No Hx Glaucoma: No Hx Macular Degeneration: No - RENAL Hx Chronic Kidney Disease: No Hx Kidney Stones: No - ENDOCRINE/METABOLIC Hx Hyperthyroidism: No Hx Hypothyroidism: No - HEMATOLOGICAL/ONCOLOGICAL Hx Anemia: No Hx Human Immunodeficiency Virus (HIV): No Hx Sickle Cell Disease: No - INTEGUMENTARY Hx Dermatological Problems: No - MUSCULOSKELETAL/RHEUMATOLOGICAL Hx Arthritis: Yes Hx Fractures: No Hx Osteoporosis: No - GASTROINTESTINAL Hx Crohn's Disease: No Hx Diverticulitis: No Hx Gall Bladder Disease: Yes (gallstones) Hx Pancreatitis: No - GENITOURINARY/GYNECOLOGICAL Hx Sexually Transmitted Disorders: No - PSYCHIATRIC Hx Anxiety: No Hx Bipolar Disorder: No Hx Depression: Yes Hx Paranoia: No Hx Post Traumatic Stress Disorder: No Hx Schizophrenia: No Hx Substance Use: No - SURGICAL HISTORY Hx Appendectomy: No Hx Cholecystectomy: No Hx Coronary Stent: No - ANESTHESIA Hx Anesthesia: Yes Hx Anesthesia Reactions: No Hx Malignant Hyperthermia: No Meds Allergies/Adverse Reactions: Allergies Allergy/AdvReac Type Severity Reaction Status Date / Time No Known Allergies Allergy Verified 11/24/15 15:06 Physical Exam - Head Exam Head Exam: ATRAUMATIC, NORMAL INSPECTION - Eye Exam Eye Exam: EOMI - ENT Exam ENT Exam: Mucous Membranes Moist - Respiratory Exam Respiratory Exam: Clear to Auscultation Bilateral, NORMAL BREATHING PATTERN. absent: Rhonchi, Wheezes - Cardiovascular Exam Cardiovascular Exam: REGULAR RHYTHM, +S1, +S2 - GI/Abdominal Exam GI & Abdominal Exam: Normal Bowel Sounds, Soft. absent: Distended, Firm, Guarding, Mass, Tenderness - Extremities Exam Extremities exam: Negative for: calf tenderness, pedal edema, tenderness, pedal pulses present (diminished) - Neurological Exam Neurological exam: Alert, Oriented x3 - Psychiatric Exam Psychiatric exam: Normal Affect, Normal Mood - Skin Skin Exam: Dry, Normal Color, Warm Additional comments: Right medial aspect of foot- metatarsophalangeal region- ulcer, no purulent discharge/drainage or blood. Results - Vital Signs Recent Vital Signs: Last Vital Signs Temp 97.3 F L 09/06/17 01:29 Pulse 71 09/06/17 01:29 Resp 20 09/06/17 01:29 BP 150/78 09/06/17 01:29 Pulse Ox 100 09/06/17 01:29 - Labs Result Diagrams: 09/05/17 23:35 09/05/17 23:35 Labs: Laboratory Results - last 24 hr 09/05/17 09/05/17 23:35 23:35 WBC 7.6 RBC 4.41 Hgb 10.9 L Hct 33.3 L MCV 75.4 L MCH 24.6 L MCHC 32.6 L RDW 15.0 H Plt Count 172 MPV 9.5 Neut % (Auto) 67.4 Lymph % (Auto) 19.7 L [place] % (Auto) 11.2 H Eos % (Auto) 1.1 Baso % (Auto) 0.6 Neut # 5.1 Lymph # 1.5 [place] # 0.8 Eos # 0.1 Baso # 0.0 Sodium 134 Potassium 4.5 Chloride 95 L Carbon Dioxide 26 Anion Gap 17 BUN 89 H Creatinine 2.4 H Est GFR ( Amer) 24 Est GFR (Non-Af Amer) 20 Random Glucose 218 H Calcium 9.4 Total Bilirubin 0.6 AST 28 ALT 32 Alkaline Phosphatase 80 Total Protein 8.3 Albumin 4.2 Globulin 4.0 H Albumin/Globulin Ratio 1.1 Assessment & Plan (1) Diabetic ulcer of foot associated with diabetes mellitus due to underlying condition, limited to breakdown of skin Assessment and Plan: Started Vanco 1gm IV Q24hr and Zosyn 2.25gm IV Q6hr Foot xray: f/u results Wound culture: f/u results Podiatry consult Status: Acute (2) Diabetes mellitus Assessment and Plan: Monitor blood glucose, accuchecks ISS (low) + hypoglycemic protocol Continue home medications: Glipizide 10mg PO daily A1c (05/05): 8.6 A1c (repeat): f/u results Status: Acute (3) Renal insufficiency Assessment and Plan: Likely secondary to DM BUN: 89, Cr: 2.4 Monitor kidney function Medications renally dosed Status: Acute (4) H/O heart artery stent Assessment and Plan: Continue home medications: [id number] PO daily, Warfarin 2mg PO HS Monitor INR Status: Acute (5) Hypertension Assessment and Plan: Continue home medications: Coreg 6.25mg PO BID and Cozaar 50mg PO daily Status: Acute (6) Prophylactic measure Assessment and Plan: SCDs Heart Healthy Diet Pepcid 20mg PO daily Accuchecks Status: Acute <Werner Meyers - Last Filed: 09/06/17 06:26> Results - Vital Signs Recent Vital Signs: Last Vital Signs Temp 98 F 09/06/17 05:48 Pulse 96 H 09/06/17 05:48 Resp 16 09/06/17 05:48 BP 101/57 L 09/06/17 05:48 Pulse Ox 99 09/06/17 05:48 - Labs Result Diagrams: 09/06/17 04:57 09/06/17 04:57 Labs: Laboratory Results - last 24 hr 09/05/17 09/05/17 09/06/17 23:35 23:35 04:57 WBC 7.6 RBC 4.41 Hgb 10.9 L Hct 33.3 L MCV 75.4 L MCH 24.6 L MCHC 32.6 L RDW 15.0 H Plt Count 172 MPV 9.5 Neut % (Auto) 67.4 Lymph % (Auto) 19.7 L [place] % (Auto) 11.2 H Eos % (Auto) 1.1 Baso % (Auto) 0.6 Neut # 5.1 Lymph # 1.5 [place] # 0.8 Eos # 0.1 Baso # 0.0 PT 12.5 H INR 1.1 APTT 29 Sodium 134 Potassium 4.5 Chloride 95 L Carbon Dioxide 26 Anion Gap 17 BUN 89 H Creatinine 2.4 H Est GFR ( Amer) 24 Est GFR (Non-Af Amer) 20 Random Glucose 218 H Calcium 9.4 Total Bilirubin 0.6 AST 28 ALT 32 Alkaline Phosphatase 80 Total Protein 8.3 Albumin 4.2 Globulin 4.0 H Albumin/Globulin Ratio 1.1 09/06/17 09/06/17 04:57 04:57 WBC 8.3 RBC 4.38 Hgb 10.6 L Hct 32.8 L MCV 74.8 L MCH 24.2 L MCHC 32.3 L RDW 14.8 H Plt Count 166 MPV 9.3 Neut % (Auto) 61.5 Lymph % (Auto) 25.8 [place] % (Auto) 10.8 H Eos % (Auto) 1.4 Baso % (Auto) 0.5 Neut # 5.1 Lymph # 2.1 [place] # 0.9 H Eos # 0.1 Baso # 0.0 PT INR APTT Sodium 136 Potassium 4.3 Chloride 98 Carbon Dioxide 26 Anion Gap 17 BUN 89 H Creatinine 2.2 H Est GFR ( Amer) 26 Est GFR (Non-Af Amer) 22 Random Glucose 101 Calcium 9.7 Total Bilirubin 0.6 AST 28 ALT 28 Alkaline Phosphatase 77 Total Protein 8.9 H Albumin 4.1 Globulin 4.9 H Albumin/Globulin Ratio 0.8 L Assessment & Plan - Date & Time Date: 09/06/17 (I have seen and examined the patient. I agree with the findings and plan of care as documented by Dr. Pearson. Patient with diabetic foot ulcer on right. Vanco and Zosyn for now. Renally dose due to worsening renal insufficiency. IVF. Wound and blood cultures. For diabetes, continue home meds. NISS and accuchecks. Monitor for acute changes.) Time: 06:24 Attending/Attestation - Attestation I have personally seen and examined this patient.: Yes I have fully participated in the care of the patient.: Yes I have reviewed all pertinent clinical information: Yes
[2017-09-06 05:01] LABS: BASO % 0.5 % (0.0-2.0); EOS # 0.1 K/uL (0.0-0.7); EOS % 1.4 % (0.0-4.0); HEMATOCRIT 32.8 % (34.0-47.0); LYMPH # 2.1 K/uL (1.0-4.3); LYMPH % 25.8 % (20.0-40.0); MEAN CELL VOLUME 74.8 fL (81.0-99.0); MEAN CORPUSCULAR HEMOGLOBIN 24.2 pg (27.0-31.0); MEAN CORPUSCULAR HGB CONC 32.3 g/dL (33.0-37.0); MEAN PLATELET VOLUME 9.3 fL (7.2-11.7); MONO # 0.9 K/uL (0.0-0.8); MONO % 10.8 % (0.0-10.0); RED CELL DISTRIBUTION WIDTH 14.8 % (11.5-14.5); WHITE BLOOD COUNT 8.3 K/uL (4.8-10.8)
[2017-09-06 05:12] LABS: POTASSIUM 4.3 mmol/L (3.6-5.2)
[2017-09-06 05:13] LABS: INR 1.1
[2017-09-06 05:15] LABS: ALB/GLOB RATIO 0.8 (1.0-2.1); BILIRUBIN,TOTAL 0.6 mg/dL (0.2-1.3); TOTAL PROTEIN 8.9 g/dL (6.3-8.3)
[2017-09-06 05:29] LABS: CALCIUM 9.7 mg/dl (8.6-10.4)
[2017-09-06] MEDS: (Novolin R) Insulin Human Regular 100 units/ml vial SC SCH ×4 (07:53→21:42)
--- NOTE | 2017-09-06 09:44 | RAD ---
PROCEDURE: Right Foot Radiographs. HISTORY: r/o osteo COMPARISON: None. FINDINGS: BONES: No fracture. A 3rd digit amputation - distal 3rd metatarsal level noted. First metatarsal-phalangeal joint mild hypertrophic and cystic arthrosis suggested. Possible small erosion medial 1st proximal phalanx. No cortical destructive destruction here or more proximal where soft tissue swelling is noted to suggest osteomyelitis. No periosteal reaction noted. Juxta-articular osteopenia 4th and 5th metatarsal phalangeal joint levels. Hammertoe orientations 4th and 5th digit suggested medial malleoli are osseous hypertrophic changes. Dorsal midfoot osseous hypertrophy. Inferior calcaneal spur. JOINTS: Normal. SOFT TISSUES: Soft tissue swelling 1st metatarsal phalangeal joint level -especially medial and plantar aspect. Possible ulcer here. No extensive gas-forming cellulitis suggested OTHER FINDINGS: Pes planus -midfoot collapse ; chronicity inferred. IMPRESSION: Soft tissue swelling - 1st metatarsal-phalangeal joint level medial and plantar aspect here cellulitis and and plantar ulcer suspect. No subjacent cortical destruction or periosteal reaction to suggest osteomyelitis. The more distal medial tiny cortical erosion 1st proximal phalanx (distal aspect and interphalangeal joint bordering) is most consistent with an arthropathic erosion. No suspect osteomyelitis here
[2017-09-06] MEDS: Piperacillin/Tazobact 2.25 GM in Sodium Chloride 100 ML IVPB SCH ×3 (09:59→19:18)
[2017-09-06] MEDS ORDERED: metOLazone 5 MG TAB PO SCH (10:00)
[2017-09-06] MEDS: Multiple Vitamins Tab PO SCH (10:00)
[2017-09-06] MEDS ORDERED: GlipiZIDE 10 mg SR Tab PO SCH (10:00)
[2017-09-06] MEDS ORDERED: Sodium Chloride 0.9% 1,000 ML IV SCH (11:30)
--- NOTE | 2017-09-06 12:28 | CP.PCM.CON ---
History of Present Illness - History of Present Illness History of Present Illness: Patient is a 77 years old female with a PMHx of DM, diabetic neuropathy, HTN, CKD, CHF was seen at bedside this AM concerning a blister formation to plantar medial aspect of right 1st MTPJ. Patient noticed the blister a few days ago, and denies of any nausea or fever associated with it. Patient denies of any trauma to the area. Patient states that her right 3rd digit was amputated secondary to OM by Dr. Grant at [place] 3 years ago. Patient states she has a callus on her right foot for the past month, but has no complaints and no pain. Patient currently denies of N/V/F/C or SOB Past Patient History - Infectious Disease Hx of Infectious Diseases: None - Tetanus Immunizations Tetanus Immunization: Unknown - Past Social History Smoking Status: as teen - CARDIAC Hx Cardia Arrhythmia: No Hx Congestive Heart Failure: Yes Hx Hypercholesterolemia: No Hx Hypertension: No Hx Mitral Valve Prolapse: No Hx Peripheral Edema: No - PULMONARY Hx Asthma: No Hx Bronchitis: No Hx Chronic Obstructive Pulmonary Disease (COPD): No Hx Emphysema: No Hx Pneumonia: Yes Hx Sleep Apnea: No - NEUROLOGICAL Hx Alzheimer's Disease: No Hx Dementia: No Hx Migraine: No Hx Parkinson's Disease: No Hx Seizures: No Hx Transient Ischemic Attacks (TIA): No - HEENT Hx HEENT Problems: No Hx Blind: No Hx Cataracts: No Hx Deafness: No Hx Difficulty Chewing: No Hx Epistaxis: No Hx Glaucoma: No Hx Macular Degeneration: No - RENAL Hx Chronic Kidney Disease: No Hx Kidney Stones: No - ENDOCRINE/METABOLIC Hx Hyperthyroidism: No Hx Hypothyroidism: No - HEMATOLOGICAL/ONCOLOGICAL Hx Anemia: No Hx Human Immunodeficiency Virus (HIV): No Hx Sickle Cell Disease: No - INTEGUMENTARY Hx Dermatological Problems: No - MUSCULOSKELETAL/RHEUMATOLOGICAL Hx Arthritis: Yes Hx Falls: No Hx Fractures: No Hx Osteoporosis: No - GASTROINTESTINAL Hx Crohn's Disease: No Hx Diverticulitis: No Hx Gall Bladder Disease: Yes (gallstones) Hx Pancreatitis: No - GENITOURINARY/GYNECOLOGICAL Hx Sexually Transmitted Disorders: No - PSYCHIATRIC Hx Anxiety: No Hx Bipolar Disorder: No Hx Depression: Yes Hx Paranoia: No Hx Post Traumatic Stress Disorder: No Hx Schizophrenia: No Hx Substance Use: No - SURGICAL HISTORY Hx Appendectomy: No Hx Cholecystectomy: No Hx Coronary Stent: No - ANESTHESIA Hx Anesthesia: Yes Hx Anesthesia Reactions: No Hx Malignant Hyperthermia: No Meds Allergies/Adverse Reactions: Allergies Allergy/AdvReac Type Severity Reaction Status Date / Time No Known Allergies Allergy Verified 11/24/15 15:06 - Medications Medications: Current Medications Aspirin (Ecotrin) 81 mg PO DAILY [facility] Last Admin: 09/06/17 10:00 Dose: 81 mg Carvedilol (Coreg) 6.25 mg PO BID [facility] Last Admin: 09/06/17 10:00 Dose: 6.25 mg Famotidine (Pepcid) 20 mg PO DAILY [facility] Last Admin: 09/06/17 10:00 Dose: 20 mg Furosemide (Lasix) 40 mg PO DAILY [facility] Last Admin: 09/06/17 10:01 Dose: 40 mg Piperacillin Sod/Tazobactam (Sod 2.25 gm/ Sodium Chloride) 100 mls @ 200 mls/ hr IVPB Q6H [facility] Last Admin: 09/06/17 09:59 Dose: 200 mls/hr Vancomycin/Sodium Chloride (Vancomycin 1 Gm/Ns 200 Ml) 1 gm in 200 mls @ 133.333 mls/hr IVPB Q24H [facility] Stop: 09/12/17 02:31 Sodium Chloride (Sodium Chloride 0.9%) 1,000 mls @ 100 mls/hr IV .Q10H [facility] Insulin Human Regular (Novolin R) 0 unit SC ACHS [facility] PRN Reason: Protocol Last Admin: 09/06/17 07:53 Dose: Not Given Metolazone (Zaroxolyn) 5 mg PO DAILY [facility] Last Admin: 09/06/17 10:00 Dose: 5 mg Multivitamins (Hexavitamin) 1 tab PO DAILY [facility] Last Admin: 09/06/17 10:00 Dose: 1 tab Warfarin Sodium (Coumadin) 2 mg PO 1800 [facility] Stop: 09/06/17 18:01 Physical Exam - Constitutional Appears: Well, Non-toxic, No Acute Distress - Head Exam Head Exam: ATRAUMATIC - Extremities Exam Additional comments: Bilateral lower extremity exam DERM: No open wound noted bilaterally. Dry skin noted. No erythema noted to skin Right foot 1st MTPJ blister to medial aspect with a small stab incision (0.5cm) for drainage noted at the time of assessment. No purulent discharge noted. Sero- sanguinous drainage noted from the blister. No PTB. VASC: Palpable DP and Non-palpable PT noted bilaterally 1/4, PIPED [employer] less than 3 seconds noted ORTHO: No pain on palpation to joints distal to ankle. Decreased ROM noted to bilateral 1st MTPJ NEURO: Gross sensation diminished - Neurological Exam Neurological exam: Alert, Oriented x3 - Psychiatric Exam Psychiatric exam: Normal Affect, Normal Mood - Skin Skin Exam: Normal Color, Warm Results - Vital Signs Recent Vital Signs: Last Vital Signs Temp 98.2 F 09/06/17 07:49 Pulse 65 09/06/17 07:49 Resp 20 09/06/17 07:49 BP 117/72 09/06/17 10:01 Pulse Ox 98 09/06/17 07:49 - Labs Result Diagrams: 09/06/17 04:57 09/06/17 04:57 Labs: Laboratory Results - last 24 hr 09/05/17 09/05/17 09/06/17 23:35 23:35 04:57 WBC 7.6 RBC 4.41 Hgb 10.9 L Hct 33.3 L MCV 75.4 L MCH 24.6 L MCHC 32.6 L RDW 15.0 H Plt Count 172 MPV 9.5 Neut % (Auto) 67.4 Lymph % (Auto) 19.7 L [place] % (Auto) 11.2 H Eos % (Auto) 1.1 Baso % (Auto) 0.6 Neut # 5.1 Lymph # 1.5 [place] # 0.8 Eos # 0.1 Baso # 0.0 PT 12.5 H INR 1.1 APTT 29 Sodium 134 Potassium 4.5 Chloride 95 L Carbon Dioxide 26 Anion Gap 17 BUN 89 H Creatinine 2.4 H Est GFR ( Amer) 24 Est GFR (Non-Af Amer) 20 POC Glucose (mg/dL) Random Glucose 218 H Calcium 9.4 Total Bilirubin 0.6 AST 28 ALT 32 Alkaline Phosphatase 80 Total Protein 8.3 Albumin 4.2 Globulin 4.0 H Albumin/Globulin Ratio 1.1 09/06/17 09/06/17 09/06/17 04:57 04:57 07:52 WBC 8.3 RBC 4.38 Hgb 10.6 L Hct 32.8 L MCV 74.8 L MCH 24.2 L MCHC 32.3 L RDW 14.8 H Plt Count 166 MPV 9.3 Neut % (Auto) 61.5 Lymph % (Auto) 25.8 [place] % (Auto) 10.8 H Eos % (Auto) 1.4 Baso % (Auto) 0.5 Neut # 5.1 Lymph # 2.1 [place] # 0.9 H Eos # 0.1 Baso # 0.0 PT INR APTT Sodium 136 Potassium 4.3 Chloride 98 Carbon Dioxide 26 Anion Gap 17 BUN 89 H Creatinine 2.2 H Est GFR ( Amer) 26 Est GFR (Non-Af Amer) 22 POC Glucose (mg/dL) 87 Random Glucose 101 Calcium 9.7 Total Bilirubin 0.6 AST 28 ALT 28 Alkaline Phosphatase 77 Total Protein 8.9 H Albumin 4.1 Globulin 4.9 H Albumin/Globulin Ratio 0.8 L 09/06/17 11:52 WBC RBC Hgb Hct MCV MCH MCHC RDW Plt Count MPV Neut % (Auto) Lymph % (Auto) [place] % (Auto) Eos % (Auto) Baso % (Auto) Neut # Lymph # [place] # Eos # Baso # PT INR APTT Sodium Potassium Chloride Carbon Dioxide Anion Gap BUN Creatinine Est GFR ( Amer) Est GFR (Non-Af Amer) POC Glucose (mg/dL) 225 H Random Glucose Calcium Total Bilirubin AST ALT Alkaline Phosphatase Total Protein Albumin Globulin Albumin/Globulin Ratio Assessment & Plan - Assessment and Plan (Free Text) Assessment: 77 yo female patient presenting with blister to medial aspect of right 1st MTPJ Plan: Patient was seen, evaluated and treated at bedside discussed wiht attending Dr. Grant in detail labs and vitals reviewed; afebrile Wound culture pending Right foot dressed with Betadine, DSD Podiatry will continue to follow inhouse
--- NOTE | 2017-09-06 13:08 | CP.PCM.PN ---
Addendum entered and electronically signed by Gabi Núñez DO 09/06/17 13:39: Patient is on NS @50cc/h, will follow up CXR and DC if patient shows signs of decompensation from fluid. Patient appears to be volume depleted Original Note: <Gabi Núñez - Last Filed: 09/06/17 13:23> Subjective - Date & Time of Evaluation Date of Evaluation: 09/06/17 Time of Evaluation: 07:45 - Subjective Subjective: Progress Note for Dr. Jones Upon visit of patient at bedside, patient states she feels fine. Patient denies chest pain, shortness of breath, dizziness, fever, chills. Patient states there is some pain at her feet. Patient states she used to see a smoking pipe maker in [place] , but hasn't been able to see him. Patient states she walks around at home, but mainly walks when she goes outside or goes to the bathroom. I was able to express some off-white, grainy material from her skin lesion likeable to a sebaceous cyst that has broken apart. Spoke to Podiatry resident about primary team consulting podiatry. Per ER note, wound care cultured the material that was expressed from the bulla. Objective - Vital Signs/Intake and Output Vital Signs (last 24 hours): Temp Pulse Resp BP Pulse Ox 98.2 F 65 20 117/72 98 09/06/17 07:49 09/06/17 07:49 09/06/17 07:49 09/06/17 10:01 09/06/17 07:49 - Medications Medications: Current Medications Aspirin (Ecotrin) 81 mg PO DAILY [facility] Last Admin: 09/06/17 10:00 Dose: 81 mg Carvedilol (Coreg) 6.25 mg PO BID [facility] Last Admin: 09/06/17 10:00 Dose: 6.25 mg Famotidine (Pepcid) 20 mg PO DAILY [facility] Last Admin: 09/06/17 10:00 Dose: 20 mg Piperacillin Sod/Tazobactam (Sod 2.25 gm/ Sodium Chloride) 100 mls @ 200 mls/ hr IVPB Q6H [facility] Last Admin: 09/06/17 09:59 Dose: 200 mls/hr Vancomycin/Sodium Chloride (Vancomycin 1 Gm/Ns 200 Ml) 1 gm in 200 mls @ 133.333 mls/hr IVPB Q24H [facility] Stop: 09/12/17 02:31 Sodium Chloride (Sodium Chloride 0.9%) 1,000 mls @ 100 mls/hr IV .Q10H [facility] Insulin Human Regular (Novolin R) 0 unit SC ACHS BEE PRN Reason: Protocol Last Admin: 09/06/17 07:53 Dose: Not Given Multivitamins (Hexavitamin) 1 tab PO DAILY [facility] Last Admin: 09/06/17 10:00 Dose: 1 tab Warfarin Sodium (Coumadin) 2 mg PO 1800 [facility] Stop: 09/06/17 18:01 - Labs Labs: 09/06/17 04:57 09/06/17 04:57 PT 12.5 SECONDS (9.7-12.2) H 09/06/17 04:57 INR 1.1 09/06/17 04:57 APTT 29 SECONDS (21-34) 09/06/17 04:57 - Constitutional Appears: Non-toxic - Head Exam Head Exam: NORMAL INSPECTION - Eye Exam Eye Exam: EOMI, Normal appearance - ENT Exam ENT Exam: Mucous Membranes Moist - Neck Exam Neck Exam: Full ROM - Respiratory Exam Respiratory Exam: NORMAL BREATHING PATTERN. absent: Accessory Muscle Use, Respiratory Distress - Cardiovascular Exam Cardiovascular Exam: REGULAR RHYTHM, +S1, +S2 - GI/Abdominal Exam GI & Abdominal Exam: Soft. absent: Tenderness - Neurological Exam Neurological Exam: Alert, Awake - Psychiatric Exam Psychiatric exam: Normal Affect, Normal Mood - Skin Skin Exam: Dry Additional comments: large multilayer callous on right 1MTP of plantar surface of the foot 22.5cm length 1.5cm width bullae with off-white material expressed. dressing replaced at bedside. Assessment and Plan - Assessment and Plan (Free Text) Assessment: (1) Diabetic ulcer of foot associated with diabetes mellitus due to underlying condition, limited to breakdown of skin Assessment and Plan: Started Vanco 1gm IV Q24hr and Zosyn 2.25gm IV Q6hr Foot xray: first MTP joint mild hypertrophic and cystic arthrosis. small erosion medial first proximal phalanx. soft tissue swelling at 1st metatarsal phalangeal joint. hammertoe 4th and 5th digit suggest medial malleoli are osseous hypertrophic changes. dorsal midfoot osseous hypertrophy. no osteomyelitis Wound culture: f/u results Podiatry consult Status: Acute (2) Diabetes mellitus Assessment and Plan: Monitor blood glucose, accuchecks ISS (low) + hypoglycemic protocol Continue home medications: Glipizide 10mg PO daily A1c (05/05): 8.6 A1c (repeat): f/u results Accuchecks (3) Renal insufficiency Assessment and Plan: Likely secondary to DM BUN/Cr: 89/2.2 GFR 26 Monitor kidney function Medications renally dosed diuretics from home held to monitor kidney function (4) H/O heart artery stent Assessment and Plan: Continue home medications: [id number] PO daily, Warfarin 2mg PO HS Monitor INR Status: Acute (5) Hypertension Assessment and Plan: Continue home medications: Coreg 6.25mg PO BID and Cozaar 50mg PO daily Status: Acute (6) Prophylaxis Assessment and Plan: SCDs Pepcid 20mg PO daily Diet: Heart Healthy Diet Status: Acute <Chandana Jones H - Last Filed: 09/06/17 17:16> Objective - Vital Signs/Intake and Output Vital Signs (last 24 hours): Temp Pulse Resp BP Pulse Ox 98.2 F 65 20 117/72 98 09/06/17 07:49 09/06/17 07:49 09/06/17 07:49 09/06/17 10:01 09/06/17 07:49 Intake and Output: 09/06/17 09/06/17 06:59 18:59 Intake Total 700 Balance 700 - Medications Medications: Current Medications Aspirin (Ecotrin) 81 mg PO DAILY [facility] Last Admin: 09/06/17 10:00 Dose: 81 mg Carvedilol (Coreg) 6.25 mg PO BID [facility] Last Admin: 09/06/17 10:00 Dose: 6.25 mg Famotidine (Pepcid) 20 mg PO DAILY [facility] Last Admin: 09/06/17 10:00 Dose: 20 mg Piperacillin Sod/Tazobactam (Sod 2.25 gm/ Sodium Chloride) 100 mls @ 200 mls/ hr IVPB Q6H [facility] Last Admin: 09/06/17 13:10 Dose: 200 mls/hr Vancomycin/Sodium Chloride (Vancomycin 1 Gm/Ns 200 Ml) 1 gm in 200 mls @ 133.333 mls/hr IVPB Q24H [facility] Stop: 09/12/17 02:31 Sodium Chloride (Sodium Chloride 0.9%) 1,000 mls @ 50 mls/hr IV .Q20H [facility] Last Admin: 09/06/17 13:45 Dose: 50 mls/hr Insulin Human Regular (Novolin R) 0 unit SC ACHS BEE PRN Reason: Protocol Last Admin: 09/06/17 13:08 Dose: 2 unit Multivitamins (Hexavitamin) 1 tab PO DAILY [facility] Last Admin: 09/06/17 10:00 Dose: 1 tab Warfarin Sodium (Coumadin) 2 mg PO 1800 [facility] Stop: 09/06/17 18:01 - Labs Labs: 09/06/17 04:57 09/06/17 04:57 PT 12.5 SECONDS (9.7-12.2) H 09/06/17 04:57 INR 1.1 09/06/17 04:57 APTT 29 SECONDS (21-34) 09/06/17 04:57 Attending/Attestation - Attestation I have personally seen and examined this patient.: Yes I have fully participated in the care of the patient.: Yes I have reviewed all pertinent clinical information, including history, physical exam and plan: Yes Notes (Text): 09/06/17 17:15 Medical attending: Patient was seen and examined by me, agree with the above note by medical transcription editor. This is a very nice 77-year-old female who comes to the hospital due to concerns over her lower extremity in particular what appears to be a diabetic foot ulcer. By the time we came and rounded on the patient was ready a small incision made in this area and I'm told that she ready had previously other providers were pushing out some purulent material in this area. She had imaging of the lower extremity which was negative for osteomyelitis. At this moment were currently waiting on cultures of this area. The patient is on vancomycin and Zosyn for the time being. With regards to her diabetes, we are actually holding her glipizidethe resident' s note suggests that were still continuing glipizide at this time the reason why were holding the glipizide is her renal function appears to be above what her baseline is. Were giving her slow intravenous fluids at this time however I just want to make her severely hypoglycemic by giving glipizide. Breathing continue to monitor sugars. We also holding her FINESSE inhibitor at this moment but due to the way her renal function. When she came and lasted her creatinine was 2.5 and since then it's come down a little bit. Give her some very slow IV hydration. Furthermore will get a check x-ray of relatively soon just to see if she could potentially become fluid overload. The patient does tell us that she feels somewhat dry we discussed with her. We'll also correct tomorrow the part mortgage loan closer note the patient is still receiving glipizide that is not the case Thank you very much, Chandana Jones
[2017-09-06] MEDS: Sodium Chloride 0.9% 1,000 ML IV SCH (13:45)
[2017-09-07 00:49] VITALS: RESP 20
[2017-09-07] MEDS: Piperacillin/Tazobact 2.25 GM in Sodium Chloride 100 ML IVPB SCH ×3 (02:05→13:06)
[2017-09-07] MEDS ORDERED: Vancomycin 1 gm/NS 200 ml 1 GM/200 ML BAG IVPB SCH (02:30)
--- NOTE | 2017-09-07 07:25 | CP.PCM.PN ---
Subjective - Date & Time of Evaluation Date of Evaluation: 09/07/17 Time of Evaluation: 07:20 - Subjective Subjective: Podiatry note for Dr. Grant 77 y.o female patient seen and evaluated at bedside for follow up on right foot open wound. Patient was resting comfortably in bed and in NAD. AAOx3. Right foot dressing intact, clean and dry. Patient denies any pain today. Patient denies any symptoms of N/V/F/SOB/Chest pain today. Objective - Vital Signs/Intake and Output Vital Signs (last 24 hours): Temp Pulse Resp BP Pulse Ox 97.7 F 74 20 130/68 99 09/06/17 23:00 09/06/17 23:00 09/06/17 23:00 09/06/17 23:00 09/06/17 23:00 Intake and Output: 09/07/17 09/07/17 06:59 18:59 Intake Total 500 Balance 500 - Medications Medications: Current Medications Aspirin (Ecotrin) 81 mg PO DAILY [facility] Last Admin: 09/06/17 10:00 Dose: 81 mg Carvedilol (Coreg) 6.25 mg PO BID [facility] Last Admin: 09/06/17 17:25 Dose: 6.25 mg Famotidine (Pepcid) 20 mg PO DAILY [facility] Last Admin: 09/06/17 10:00 Dose: 20 mg Piperacillin Sod/Tazobactam (Sod 2.25 gm/ Sodium Chloride) 100 mls @ 200 mls/ hr IVPB Q6H [facility] Last Admin: 09/07/17 02:05 Dose: 200 mls/hr Vancomycin/Sodium Chloride (Vancomycin 1 Gm/Ns 200 Ml) 1 gm in 200 mls @ 133.333 mls/hr IVPB Q24H [facility] Stop: 09/12/17 02:31 Last Admin: 09/07/17 03:05 Dose: 133.333 mls/hr Sodium Chloride (Sodium Chloride 0.9%) 1,000 mls @ 50 mls/hr IV .Q20H [facility] Last Admin: 09/06/17 13:45 Dose: 50 mls/hr Insulin Human Regular (Novolin R) 0 unit SC ACHS [facility] PRN Reason: Protocol Last Admin: 09/06/17 21:42 Dose: Not Given Multivitamins (Hexavitamin) 1 tab PO DAILY [facility] Last Admin: 09/06/17 10:00 Dose: 1 tab - Labs Labs: 09/06/17 04:57 09/06/17 04:57 PT 12.5 SECONDS (9.7-12.2) H 09/06/17 04:57 INR 1.1 09/06/17 04:57 APTT 29 SECONDS (21-34) 09/06/17 04:57 - Constitutional Appears: Well, Non-toxic, No Acute Distress - Extremities Exam Additional comments: Bilateral lower extremity exam DERM: Right foot plantar open wound noted secondary to the debridement ( 3 cm x 4.8 cm x 0.6 cm), granular wound base, no signs of infection, no drainage, no active bleeding, no purulence VASC: Palpable DP and Non-palpable PT noted bilaterally 1/4, BUSINESS TEAM LEADER less than 3 seconds noted ORTHO: No pain on palpation to joints distal to ankle. Decreased ROM noted to bilateral 1st MTPJ NEURO: Gross sensation diminished - Neurological Exam Neurological Exam: Alert, Awake - Psychiatric Exam Psychiatric exam: Normal Affect, Normal Mood Assessment and Plan - Assessment and Plan (Free Text) Assessment: 77 y/o female patient with plantar open wound of right foot secondary to debridement ( originally pt had blister with purulence inside) Plan: Patient was seen, evaluated and treated at bedside discussed wiht attending Dr. Grant in detail labs and vitals reviewed; afebrile Wound culture pending Right foot dressed with Betadine, DSD Podiatry will continue to follow inhouse
[2017-09-07] MEDS: (Novolin R) Insulin Human Regular 100 units/ml vial SC SCH ×3 (07:49→16:46)
[2017-09-07] MEDS ORDERED: Bisacodyl 5mg EC Tab PO ONE (09:08)
[2017-09-07] MEDS: Sodium Chloride 0.9% 1,000 ML IV SCH (09:28)
[2017-09-07] MEDS: Multiple Vitamins Tab PO SCH (09:55)
[2017-09-07] MEDS ORDERED: POLYETHYLENE GLYCOL 3350 17 GM/Dose PACKET PO ONE (10:00)
[2017-09-07 14:20] LABS: BASO % 0.4 % (0.0-2.0); EOS # 0.2 K/uL (0.0-0.7); EOS % 2.3 % (0.0-4.0); HEMATOCRIT 34.4 % (34.0-47.0); LYMPH # 1.2 K/uL (1.0-4.3); LYMPH % 17.5 % (20.0-40.0); MEAN CELL VOLUME 76.2 fL (81.0-99.0); MEAN CORPUSCULAR HEMOGLOBIN 24.2 pg (27.0-31.0); MEAN CORPUSCULAR HGB CONC 31.7 g/dL (33.0-37.0); MEAN PLATELET VOLUME 9.6 fL (7.2-11.7); MONO # 0.7 K/uL (0.0-0.8); MONO % 9.8 % (0.0-10.0); NRBC % 0.1 % (0.0-2.0); WHITE BLOOD COUNT 7.1 K/uL (4.8-10.8)
[2017-09-07 14:31] LABS: POTASSIUM 4.8 mmol/L (3.6-5.2)
[2017-09-07 14:33] LABS: ALB/GLOB RATIO 0.9 (1.0-2.1); BILIRUBIN,TOTAL 0.7 mg/dL (0.2-1.3); TOTAL PROTEIN 8.3 g/dL (6.3-8.3)
--- NOTE | 2017-09-07 14:49 | CP.PCM.DIS ---
<Flora Porras - Last Filed: 09/07/17 14:51> Provider - Provider Date of Admission: 09/06/17 01:02 Attending physician: Werner Meyers MD Time Spent in preparation of Discharge (in minutes): 55 Hospital Course - Lab Results Lab Results: Micro Results 09/06/17 Unknown Foot - Right Gram Stain - Final 09/06/17 Unknown Foot - Right Wound Culture - Preliminary NO GROWTH AFTER 24 HOURS Most Recent Lab Values WBC 7.1 K/uL (4.8-10.8) 09/07/17 14:06 RBC 4.52 Mil/uL (3.80-5.20) 09/07/17 14:06 Hgb 10.9 g/dL (11.0-16.0) L 09/07/17 14:06 Hct 34.4 % (34.0-47.0) 09/07/17 14:06 MCV 76.2 fL (81.0-99.0) L 09/07/17 14:06 MCH 24.2 pg (27.0-31.0) L 09/07/17 14:06 MCHC 31.7 g/dL (33.0-37.0) L 09/07/17 14:06 RDW 15.0 % (11.5-14.5) H 09/07/17 14:06 Plt Count 168 K/uL (130-400) 09/07/17 14:06 MPV 9.6 fL (7.2-11.7) 09/07/17 14:06 Neut % (Auto) 70.0 % (50.0-75.0) 09/07/17 14:06 Lymph % (Auto) 17.5 % (20.0-40.0) L 09/07/17 14:06 [place] % (Auto) 9.8 % (0.0-10.0) 09/07/17 14:06 Eos % (Auto) 2.3 % (0.0-4.0) 09/07/17 14:06 Baso % (Auto) 0.4 % (0.0-2.0) 09/07/17 14:06 Neut # 5.0 K/uL (1.8-7.0) 09/07/17 14:06 Lymph # 1.2 K/uL (1.0-4.3) 09/07/17 14:06 [place] # 0.7 K/uL (0.0-0.8) 09/07/17 14:06 Eos # 0.2 K/uL (0.0-0.7) 09/07/17 14:06 Baso # 0.0 K/uL (0.0-0.2) 09/07/17 14:06 PT 12.5 SECONDS (9.7-12.2) H 09/06/17 04:57 INR 1.1 09/06/17 04:57 APTT 29 SECONDS (21-34) 09/06/17 04:57 Sodium 136 mmol/L (132-148) 09/07/17 14:06 Potassium 4.8 mmol/L (3.6-5.2) 09/07/17 14:06 Chloride 101 mmol/L (98-107) 09/07/17 14:06 Carbon Dioxide 24 mmol/L (22-30) 09/07/17 14:06 Anion Gap 16 (-20) 09/07/17 14:06 BUN 67 mg/dL (7-17) H 09/07/17 14:06 Creatinine 2.0 mg/dL (0.7-1.2) H 09/07/17 14:06 Est GFR ( Amer) 29 09/07/17 14:06 Est GFR (Non-Af Amer) 24 09/07/17 14:06 POC Glucose (mg/dL) 163 mg/dL (65-110) H 09/07/17 12:10 Random Glucose 158 mg/dL (65-105) H 09/07/17 14:06 Hemoglobin A1c 7.5 % (4.2-6.5) H 09/06/17 16:41 Calcium 9.0 mg/dl (8.6-10.4) 09/07/17 14:06 Total Bilirubin 0.7 mg/dL (0.2-1.3) 09/07/17 14:06 AST 25 U/L (14-36) 09/07/17 14:06 ALT 21 U/L (9-52) 09/07/17 14:06 Alkaline Phosphatase 65 U/L (38-126) 09/07/17 14:06 Total Protein 8.3 g/dL (6.3-8.3) 09/07/17 14:06 Albumin 3.9 g/dL (3.5-5.0) 09/07/17 14:06 Globulin 4.4 gm/dL (2.2-3.9) H 09/07/17 14:06 Albumin/Globulin Ratio 0.9 (1.0-2.1) L 09/07/17 14:06 - Hospital Course Hospital Course: Upon Admission: Patient is a 77 years old female with a past medical history of DM, diabetic neuropathy, HTN, CKD, CHF, who presents to the ED with complaints of an ulcer on her right foot. Patient reports she first noticed the "bubble" today. She denies having pain, but states she has severe neuropathy, numbness, tingling, and decreased sensation. Patient states she had to have her 3rd toe amputated three years ago after stepping on a tac; she report she had the tac in her toe for 4 days without realizing due to her neuropathy. Patient states she has a callus on her right foot for the past month, but has no complaints and no pain. Patient currently denies having chest pain, palpitations, abdominal pain, nausea , vomiting, fevers, and headaches. PMD: Dr. Grider PMHx: DM, diabetic neuropathy, HTN, CKD, CHF SurgHx: right 3rd toe amputation, cardiac stent 2013 FamHx: Mother- [place], Colon Cancer SocHx: denies tobacco, alcohol, and drug use; lives with daughter (Mariam) Allergies: NKDA Medications: Warfarin, Lasix, Multivitamins, Metolazone, Carvedilol, [id number], Losartan, Glucophage, Insulin Throughout Hospital Course: Patient was admitted for diabetic foot ulcer. S/P bedside I &D - wound culture - negative (1) Diabetic ulcer of foot associated with diabetes mellitus due to underlying condition, limited to breakdown of skin Assessment and Plan: Started Vanco 1gm IV Q24hr and Zosyn 2.25gm IV Q6hr Foot xray: first MTP joint mild hypertrophic and cystic arthrosis. small erosion medial first proximal phalanx. soft tissue swelling at 1st metatarsal phalangeal joint. hammertoe 4th and 5th digit suggest medial malleoli are osseous hypertrophic changes. dorsal midfoot osseous hypertrophy. no osteomyelitis Wound culture: negative Podiatry consult Status: Acute (2) Diabetes mellitus Assessment and Plan: Monitor blood glucose, accuchecks ISS (low) + hypoglycemic protocol Continue home medications: Glipizide 10mg PO daily A1c (05/05): 8.6 A1c (repeat): 7.5 Accuchecks (3) Renal insufficiency Assessment and Plan: Likely secondary to DM BUN/Cr: 89/2.2 --> today 67/2.0 GFR 26 Monitor kidney function Medications renally dosed diuretics from home held to monitor kidney function (4) H/O heart artery stent Assessment and Plan: Continue home medications: [id number] PO daily, Warfarin 2mg PO HS Monitor INR Status: Acute (5) Hypertension Assessment and Plan: Continue home medications: Coreg 6.25mg PO BID and Cozaar 50mg PO daily Status: Acute (6) Prophylaxis Assessment and Plan: SCDs Pepcid 20mg PO daily Diet: Heart Healthy Diet This is brief summary of the patient's hospital course. Please review EMR for full record. Discharge Exam - Head Exam Head Exam: NORMAL INSPECTION - Additional Findings Additional findings: - Constitutional Appears: Non-toxic - Head Exam Head Exam: NORMAL INSPECTION - Eye Exam Eye Exam: EOMI, Normal appearance - ENT Exam ENT Exam: Mucous Membranes Moist - Neck Exam Neck Exam: Full ROM - Respiratory Exam Respiratory Exam: NORMAL BREATHING PATTERN. absent: Accessory Muscle Use, Respiratory Distress - Cardiovascular Exam Cardiovascular Exam: REGULAR RHYTHM, +S1, +S2 - GI/Abdominal Exam GI & Abdominal Exam: Soft. absent: Tenderness - Neurological Exam Neurological Exam: Alert, Awake - Psychiatric Exam Psychiatric exam: Normal Affect, Normal Mood - Skin Skin Exam: Dry, right foot wrapped in finesse bandage - c/d/i Discharge Plan - Discharge Medications Prescriptions: Amoxicillin/Clavulanate [Augmentin 500 MG-125 MG] 1 tab PO Q12 #14 tab - Follow Up Plan Condition: STABLE Disposition: HOME/ ROUTINE Instructions: Amoxicillin/Clavulanate Potassium (By mouth), Heart Failure (DC) , Acute Kidney Injury (DC), Heart Healthy Diet (DC), Diabetic Foot Care (DC), Basic Carbohydrate Counting (DC), Meal Planning with the Plate Method (DC), Meal Planning with Diabetes Exchanges (DC) Additional Instructions: Patient is to continue taking Augmentin 1 tablet twice a day for 7 days to cover the infection on your foot. Please do not take your glyburide (medication for your diabetes) and Coreg until you see Dr. Wade Grider and he monitors your kidney functions. When you arrived to the hospital they were elevated at BUN/CRE: 84/2.4. He will let you know when you can resume it or if he decides to change your medication. Please continue taking the rest of your medications as they were prescribed by Dr. Grider. Please follow up with the marketing traffic coordinator (foot doctor) within 1 week. Referrals: Wade Grider DO [Staff Provider] - Ramona Grant DPM [Staff Provider] - <Chandana Jones - Last Filed: 09/07/17 17:28> Provider - Provider Date of Admission: 09/06/17 01:02 Attending physician: Werner Meyers MD Hospital Course - Lab Results Lab Results: Micro Results 09/06/17 Unknown Foot - Right Gram Stain - Final 09/06/17 Unknown Foot - Right Wound Culture - Preliminary NO GROWTH AFTER 24 HOURS Most Recent Lab Values WBC 7.1 K/uL (4.8-10.8) 09/07/17 14:06 RBC 4.52 Mil/uL (3.80-5.20) 09/07/17 14:06 Hgb 10.9 g/dL (11.0-16.0) L 09/07/17 14:06 Hct 34.4 % (34.0-47.0) 09/07/17 14:06 MCV 76.2 fL (81.0-99.0) L 09/07/17 14:06 MCH 24.2 pg (27.0-31.0) L 09/07/17 14:06 MCHC 31.7 g/dL (33.0-37.0) L 09/07/17 14:06 RDW 15.0 % (11.5-14.5) H 09/07/17 14:06 Plt Count 168 K/uL (130-400) 09/07/17 14:06 MPV 9.6 fL (7.2-11.7) 09/07/17 14:06 Neut % (Auto) 70.0 % (50.0-75.0) 09/07/17 14:06 Lymph % (Auto) 17.5 % (20.0-40.0) L 09/07/17 14:06 [place] % (Auto) 9.8 % (0.0-10.0) 09/07/17 14:06 Eos % (Auto) 2.3 % (0.0-4.0) 09/07/17 14:06 Baso % (Auto) 0.4 % (0.0-2.0) 09/07/17 14:06 Neut # 5.0 K/uL (1.8-7.0) 09/07/17 14:06 Lymph # 1.2 K/uL (1.0-4.3) 09/07/17 14:06 [place] # 0.7 K/uL (0.0-0.8) 09/07/17 14:06 Eos # 0.2 K/uL (0.0-0.7) 09/07/17 14:06 Baso # 0.0 K/uL (0.0-0.2) 09/07/17 14:06 PT 12.5 SECONDS (9.7-12.2) H 09/06/17 04:57 INR 1.1 09/06/17 04:57 APTT 29 SECONDS (21-34) 09/06/17 04:57 Sodium 136 mmol/L (132-148) 09/07/17 14:06 Potassium 4.8 mmol/L (3.6-5.2) 09/07/17 14:06 Chloride 101 mmol/L (98-107) 09/07/17 14:06 Carbon Dioxide 24 mmol/L (22-30) 09/07/17 14:06 Anion Gap 16 (10-20) 09/07/17 14:06 BUN 67 mg/dL (7-17) H 09/07/17 14:06 Creatinine 2.0 mg/dL (0.7-1.2) H 09/07/17 14:06 Est GFR ( Amer) 29 09/07/17 14:06 Est GFR (Non-Af Amer) 24 09/07/17 14:06 POC Glucose (mg/dL) 183 mg/dL (65-110) H 09/07/17 16:13 Random Glucose 158 mg/dL (65-105) H 09/07/17 14:06 Hemoglobin A1c 7.5 % (4.2-6.5) H 09/06/17 16:41 Calcium 9.0 mg/dl (8.6-10.4) 09/07/17 14:06 Total Bilirubin 0.7 mg/dL (0.2-1.3) 09/07/17 14:06 AST 25 U/L (14-36) 09/07/17 14:06 ALT 21 U/L (9-52) 09/07/17 14:06 Alkaline Phosphatase 65 U/L (38-126) 09/07/17 14:06 Total Protein 8.3 g/dL (6.3-8.3) 09/07/17 14:06 Albumin 3.9 g/dL (3.5-5.0) 09/07/17 14:06 Globulin 4.4 gm/dL (2.2-3.9) H 09/07/17 14:06 Albumin/Globulin Ratio 0.9 (1.0-2.1) L 09/07/17 14:06 Attending/Attestation - Attestation I have personally seen and examined this patient.: Yes I have fully participated in the care of the patient.: Yes I have reviewed all pertinent clinical information, including history, physical exam and plan: Yes Notes (Text): 09/07/17 17:28 Medical attending: Patient was seen and examined by me, agrees the above note by vice president medical affairs. When we saw the patient she was not under any acute distress. She reported that the pain in her lower extremity was very very minimal. She denied having any fevers or chills. The wound dressing had just been changed by podiatry as mentioned previously the patient had a very small incision and drainage of area with some purulent pus that was able to be pushed out I&D. Furthermore she also had intervention of some the foot calluses as well. The above note as documented above the resident note is the patient's chronic kidney disease. It appears that she has a baseline creatinine of about 1.5-1.9 when she first came here her creatinine was 2.7 she was given very slow intravenous hydration as well as holding the Lasix holding the FINESSE inhibitor and also holding the patient's diabetic medication glimepiride We explained to the patient that her creatinine has been improving however for the time being she should hold off on her FINESSE inhibitor and glimepiride until she can follow-up with her primary care physician Thank you very much Chandana Jones
[2017-09-07 16:30] VITALS: TEMP 97.1; O2SAT 100
[2017-09-07 17:27] VITALS: BP 137/77; PULSE 77
[2017-09-07] MEDS ORDERED: Piperacill/Tazo 2.25gm in Dex 2.25 GM/50 ML BAG IVPB SCH (19:00)
[2017-09-08] MEDS ORDERED: Silver Sulfadiazine 1% Cream (20 gm) TOP ONE (15:31)
== END 2017-09-07 17:55 | disposition home or self-care (01) | DRG 638 ==
LOC: C.ER 21:51 → C.9E 09-06 01:02 → C.5S 09-06 06:09
PROVIDERS: ADMIT Family Medicine; ATTEND Family Medicine
PROC: 0H9MXZZ Drainage of Right Foot Skin, External Approach (ICD-10-PCS; principal; 2017-09-06)
PROC: 0HDNXZZ Extraction of Left Foot Skin, External Approach (ICD-10-PCS; 2017-09-06)
DX: E11.621 Type 2 diabetes mellitus with foot ulcer (principal); I13.0 Hypertensive heart and chronic kidney disease with heart failure and stage 1 through stage 4 chronic kidney disease, or unspecified chronic kidney disease; N17.9 Acute kidney failure, unspecified; E11.22 Type 2 diabetes mellitus with diabetic chronic kidney disease; I50.9 Heart failure, unspecified; E11.40 Type 2 diabetes mellitus with diabetic neuropathy, unspecified; E86.9 Volume depletion, unspecified; N18.9 Chronic kidney disease, unspecified; Z79.4 Long term (current) use of insulin; E78.5 Hyperlipidemia, unspecified; Z95.5 Presence of coronary angioplasty implant and graft; L84 Corns and callosities; L72.3 Sebaceous cyst